=== PATIENT | male | born 1955 | race Caucasian/White ===

== ENCOUNTER 2020-03-11 10:47 | Outpatient (CLI) | payer MEDICAID, SELFPAY ==
[2020-03-14 17:00] LABS: Patient Race White; SARS-CoV-2 Specimen Source Nasal
[2020-03-14 18:19] LABS: SARS-CoV-2 RNA Detected (Undetected)
== END 2020-03-11 11:07 ==
PROVIDERS: PCP Family Medicine; Visit Provider Family Medicine
DX: Z11.59 Encounter for screening for other viral diseases (principal)
CPT/HCPCS: U0003

== ENCOUNTER 2020-03-17 06:24 | Inpatient (IN) | payer MEDICAID, SELFPAY ==
[2020-03-17] VITALS (70 sets, daily range): BP systolic 96–137; BP diastolic 50–102; PULSE 51–113; RESP 15–31; TEMP 36.6–37.5; O2SAT 74–98
--- NOTE | 2020-03-17 06:30 | RT.EKG_ITS ---
APPROVED REPORT Exam: Resting ECG Patient Location: E HR:85 bpm ECG Measurements Heart Rate 85 AXIS NC 142 P 34 QRSd 103 QRS 33 QT 348 T 19 QTc 414 Conclusion Sinus rhythm...normal P axis, V-rate 60- 99 Physician: Rate 85, intervals normal, sinus rhythm, inverted T wave in lead III, small Q-wave in lead III, but terminal S wave in lead I. No signs of STEMI. No other abnormalities
--- NOTE | 2020-03-17 06:41 | ED.GENADUL_ITS ---
Discharge Plan Disposition Condition: Good Discharge Details Chief Complaint: SOB Admit Date/Time: 03/17/20 08:35 Admit Provider: Andrés Turpin Attending Provider: Andrés Turpin Primary Care Provider: Arnoldo Villa ED Provider: Lyly Kaur Discharge Instructions Activity:: quarantine until 03/24/20 Equipment/Supplies:: No Equipment Needed Diet:: As Tolerated Discharge Orders Discharge Orders: Discharge Order (Routine); Ordered 03/19/20 Ordered By: Leodan De Guzman Discharge Data Discharge Date/Time-TO BE ENTERED AT DEPARTURE: 03/17/20 10:03 Medical Decision Making <Carmelo Hussein DO - Last Filed: 03/18/20 01:07> 65-year-old male with a past medical history of a COVID diagnosis 6 days ago, history of asthma, and distant history of smoking over 30 years ago, presents today for evaluation of shortness of breath. For the last 6 days he has had intermittent fever and chills, as well as shortness of breath, however over the last 72 hours he has had a notable progression of his shortness of breath, in conjunction with pleuritic chest pain. States that he feels like he cannot breathe when he tries to lay down at night, and feels notably winded with normal activities. He denies any tearing or ripping sensation. He does admit to a cough with no significant productivity. He states that it feels similar to his previous episodes of pneumonia in the past. He denies any headache, neck pain, nausea vomiting or diarrhea. He denies any new medications. He does take an inhaler occasionally at home. No other complaints at this time. Physical exam demonstrates crackles in the bases, oxygenation is at 91% at rest. He demonstrates mild respiratory distress but shows no signs of acute respiratory failure. Differential is broad but includes pulmonary edema secondary to Covid, pulmonary embolism potential but less likely. We will perform laboratory work- up, CT imaging, apply supplemental oxygen, monitor closely and reassess. EKG 6: 41 Rate 85, intervals normal, sinus rhythm, inverted T wave in lead III, small Q- wave in lead III, but terminal S wave in lead I. No signs of STEMI. No other abnormalities <Lyly Kaur MD - Last Filed: 03/24/20 11:56> Patient signed out to me at time of shift change by Dr. Hussein with labs pending. CT shows diffuse groundglass opacities, no PE per Dr. Hussein's discussion with radiology. Labs reviewed, notable for leukopenia, elevated ferritin, CRP, LDH, creatinine. Plan for dexamethasone and admission. I discussed the patient with hospitalist Dr. Hines, who requests remdesivir and Zosyn. Patient admitted to the ICU. Clinical impression: Covid, hypoxia Disposition: [facility] inpatient Medical Records Medical records reviewed: Yes I reviewed the patient's medical records. Lab Data Lab results reviewed: Yes I reviewed the patient's lab results. Labs: 03/17/20 07:00 Blood Blood Culture - Pending 03/17/20 06:45 Blood Blood Culture - Pending Laboratory Tests Range/Units 03/17/20 03/17/20 03/17/20 06:45 06:45 06:45 WBC (4.4-10.8) 10^3/uL 4.39 L RBC (4.36-5.78) 10^6/uL 4.65 Hgb (13.5-17.5) g/dL 13.6 Hct (40.0-50.0) % 40.4 MCV (80-95) fL 86.9 MCH (27.0-33.0) pg 29.2 MCHC (32.0-36.0) % 33.7 RDW (11.8-14.1) % 12.8 Plt Count (130-400) 10^3/uL 214 MPV (8.0-11.0) fL 10.3 Immature Gran % 0.5 Neutrophils % 81.6 Lymphocytes % 13.9 Monocytes % 3.6 Eosinophils % 0.2 Basophils % 0.2 Nucleated RBC % % 0 Absolute Neutrophils (1.2-6.7) 10^3/uL 3.58 Absolute Lymphocytes (1.2-3.4) 10^3/uL 0.61 L Absolute Monocytes (0.1-0.8) 10^3/uL 0.16 Absolute Eosinophils (0.0-0.7) 10^3/uL 0.01 Absolute Basophils (0.0-0.2) 10^3/uL 0.01 D-Dimer (<500) ng/mlFEU VBG Lactate (0.6-1.4) mmol/L 1.2 Sodium (136-145) mmol/L 137 Potassium (3.5-5.1) mmol/L 4.5 Chloride (98-107) mmol/L 102 Carbon Dioxide (21.0-32.0) mmol/L 26.3 Anion Gap (3-11) mmol/L 8.7 BUN (7-18) mg/dL 19 H Creatinine (0.70-1.30) mg/dL 1.33 H Estimated GFR/1.73 m2 (mL/min/1.73m2) 54.31 Glucose (74-106) mg/dL 90 Calcium (8.5-10.1) mg/dL 8.4 L Ferritin (26-388) ng/mL 758 H Total Bilirubin (0.2-1.0) mg/dL 0.4 AST (15-37) U/L 42 H ALT (16-63) U/L 27 Alkaline Phosphatase (46-116) U/L 64 Lactate Dehydrogenase (85-227) U/L 399 H Troponin I (<0.06) ng/mL < 0.05 C-Reactive Protein (0.0-0.3) mg/dL 12.29 H Total Protein (6.4-8.2) g/dL 7.1 Albumin (3.4-5.0) g/dL 3.2 L Procalcitonin ng/mL 0.1 Range/Units 03/17/20 06:45 WBC (4.4-10.8) 10^3/uL RBC (4.36-5.78) 10^6/uL Hgb (13.5-17.5) g/dL Hct (40.0-50.0) % MCV (80-95) fL MCH (27.0-33.0) pg MCHC (32.0-36.0) % RDW (11.8-14.1) % Plt Count (130-400) 10^3/uL MPV (8.0-11.0) fL Immature Gran % Neutrophils % Lymphocytes % Monocytes % Eosinophils % Basophils % Nucleated RBC % % Absolute Neutrophils (1.2-6.7) 10^3/uL Absolute Lymphocytes (1.2-3.4) 10^3/uL Absolute Monocytes (0.1-0.8) 10^3/uL Absolute Eosinophils (0.0-0.7) 10^3/uL Absolute Basophils (0.0-0.2) 10^3/uL D-Dimer (<500) ng/mlFEU 942 H VBG Lactate (0.6-1.4) mmol/L Sodium (136-145) mmol/L Potassium (3.5-5.1) mmol/L Chloride (98-107) mmol/L Carbon Dioxide (21.0-32.0) mmol/L Anion Gap (3-11) mmol/L BUN (7-18) mg/dL Creatinine (0.70-1.30) mg/dL Estimated GFR/1.73 m2 (mL/min/1.73m2) Glucose (74-106) mg/dL Calcium (8.5-10.1) mg/dL Ferritin (26-388) ng/mL Total Bilirubin (0.2-1.0) mg/dL AST (15-37) U/L ALT (16-63) U/L Alkaline Phosphatase (46-116) U/L Lactate Dehydrogenase (85-227) U/L Troponin I (<0.06) ng/mL C-Reactive Protein (0.0-0.3) mg/dL Total Protein (6.4-8.2) g/dL Albumin (3.4-5.0) g/dL Procalcitonin ng/mL HPI <Carmelo Hussein DO - Last Filed: 03/18/20 01:07> General Date/Time Provider Initiated Documentation: 03/17/20 06:27 . HPI Narrative: 65-year-old male with a past medical history of a COVID diagnosis 6 days ago, history of asthma, and distant history of smoking over 30 years ago, presents today for evaluation of shortness of breath. For the last 6 days he has had intermittent fever and chills, as well as shortness of breath, however over the last 72 hours he has had a notable progression of his shortness of breath, in conjunction with pleuritic chest pain. States that he feels like he cannot breathe when he tries to lay down at night, and feels notably winded with normal activities. He denies any tearing or ripping sensation. He does admit to a cough with no significant productivity. He states that it feels similar to his previous episodes of pneumonia in the past. He denies any headache, neck pain, nausea vomiting or diarrhea. He denies any new medications. He does take an inhaler occasionally at home. No other complaints at this time. Related Data Home Medications Medication Instructions Recorded Confirmed albuterol sulfate 90 mcg/actuation 2 puff INHALATION Q4H PRN #1 10/17/19 03/17/20 aerosol inhaler inhaler fluticasone 100 mcg-salmeterol 50 1 ea INHALATION BID #60 each 10/17/19 10/17/19 mcg/dose blistr powdr for inhalation amoxicillin-pot clavulanate 1 tab PO BID #10 tab 03/19/20 [Augmentin] budesonide-formoterol [Symbicort] 2 puff INHALATION BID #1 g 03/19/20 ipratropium-albuterol [Combivent 1 puff INHALATION QID #1 g 03/19/20 Respimat] lorazepam 0.5 mg tablet 0.5 mg PO QHS PRN #7 tab 03/21/20 Previous Rx's Medication Instructions Recorded albuterol sulfate 90 mcg/actuation 2 puff INHALATION Q4H PRN #1 10/17/19 aerosol inhaler inhaler fluticasone 100 mcg-salmeterol 50 1 ea INHALATION BID #60 each 10/17/19 mcg/dose blistr powdr for inhalation amoxicillin-pot clavulanate 1 tab PO BID #10 tab 03/19/20 [Augmentin] budesonide-formoterol [Symbicort] 2 puff INHALATION BID #1 g 03/19/20 ipratropium-albuterol [Combivent 1 puff INHALATION QID #1 g 03/19/20 Respimat] lorazepam 0.5 mg tablet 0.5 mg PO QHS PRN #7 tab 03/21/20 Allergies Allergy/AdvReac Type Severity Reaction Status Date / Time No Known Allergies Allergy Unverified 03/17/20 06:40 General Stated Complaint: SOB DEBBY: 3 Review of Systems <Carmelo Hussein DO - Last Filed: 03/18/20 01:07> All systems reviewed & are unremarkable except as noted in HPI and below PFSH <Carmelo Hussein DO - Last Filed: 03/18/20 01:07> Medical History Amputation of right middle finger (03/11/17) Chronic obstructive pulmonary disease (08/28/12) stay on the inhaler Family History Father , 88 Heart disease Hypertension Mother No problems noted. Brother No problems noted. Brother No problems noted. Brother No problems noted. Brother No problems noted. Son No problems noted. Daughter No problems noted. Daughter No problems noted. Social History Smoking/Tobacco Use Status: Current every day Smokeless tobacco user: snuff Quit status: has quit before (chews off and on) Second Hand Exposure: No Smoking risk assessment performed?: Yes Alcohol Intake: never Drug use: Never Substance use type: does not use Caregiver/Support person: Yes Household members: children and none Housing: house Number of Children: 1 Do you need help understanding health information?: Rarely Pets and animals: Yes Pets and animals: cat(s), horse(s) and other Details: Chicken Sexually active: Yes Do you think of yourself as: straight/heterosexual Current gender identity: decline to answer What is your relationship status?: How often do you talk on the phone with friends or family?: three or more times per week How often do you get together with friends or relatives?: three or more times per week How often do you attend faith or yazdanism services?: decline to answer Do you belong to any clubs or organized social groups?: yes Panel score (0-1 are the most socially isolated patients): 2 What type of physical activity do you participate in: other Duration: > 90 minutes/day Frequency: daily Apurva/Lutheran: No preference Special apurva needs: No Seatbelt use: always Helmet use: No Drive intox or ride w/intox transit bus driver: No Do you feel safe at home: Yes Do you feel safe in your relationship?: Yes Exam <Carmelo Hussein DO - Last Filed: 03/18/20 01:07> Narrative Exam Narrative: 1.Const: Well-nourished, Well-developed, appearing stated age 2.Eyes: PERRL, no conjunctival injection, and symmetrical lids. 3.ENT: Atraumatic external nose and ears. Moist MM. Neck: Symmetric, trachea midline, No thyromegaly. 4.CVS: +S1/S2, No murmurs or gallops. Peripheral pulses 2+ and equal in all extremities. Brisk capillary refill in all extremities. 5.RESP: Mild tachypnea, crackles in the bases, no wheezes or rhonchi. 6.GI: Soft, Nontender/Nondistended, No hepatosplenomegaly. No guarding or rebound. 7.MSK: Normocephalic/Atraumatic, Extremities w/o deformity or ttp No cyanosis or clubbing, Normal movement of all extremities 8.Skin: Warm, Dry. No rashes or lesions. 9.Neuro: transportation technician II-XII grossly intact. Sensation grossly intact, no focal n eurologic deficits. 10.Psych: (AAO) x3. Appropriate mood and affect Course <Carmelo Hussein DO - Last Filed: 03/18/20 01:07> Vital Signs Vital signs: Vital Signs Temperature 37 C 03/17/20 06:32 Pulse 89 03/17/20 06:32 Respiratory Rate 25 H 03/17/20 06:32 Blood Pressure 118/65 03/17/20 06:32 Pulse Oximetry 93 03/17/20 06:32 Temperature 37 C 03/17/20 06:32 Temperature Source Tympanic 03/17/20 06:32 Pulse 89 03/17/20 06:32 Respiratory Rate 25 H 03/17/20 06:32 Respiratory Effort 03/17/20 06:38 Blood Pressure 118/65 03/17/20 06:32 Blood Pressure Position Sitting 03/17/20 06:32 Pulse Oximetry 93 03/17/20 06:32 Oxygen Delivery Method Room Air 03/17/20 06:32 Oxygen Flow Rate 0 03/17/20 06:32 Comment 03/17/20 06:32 Sign Out <Carmelo Hussein DO - Last Filed: 03/18/20 01:07> Sign Out Data: Sign Out Comment: Covid positive, shortness of breath, O2 sat 91%. Pending labs and imaging. Last updated by Carmelo Hussein DO at 03/17/20 07:10
[2020-03-17 07:12] LABS: Lactate 1.2 mmol/L (0.6-1.4)
[2020-03-17 07:13] LABS: Abs Immature Grans 0.02 10^3/uL (0.0-0.06); Absolute Basophil Count 0.01 10^3/uL (0.0-0.2); Absolute Eosinophil Count 0.01 10^3/uL (0.0-0.7); Absolute Lymphocyte Count 0.61 10^3/uL (1.2-3.4); Absolute Monocyte Count 0.16 10^3/uL (0.1-0.8); Absolute Neutrophil Count 3.58 10^3/uL (1.2-6.7); Basophils % 0.2; Eosinophils % 0.2; HCT 40.4 % (40.0-50.0); HGB 13.6 g/dL (13.5-17.5); Immature Grans % 0.5; Lymphocytes % 13.9; MCH 29.2 pg (27.0-33.0); MCHC 33.7 % (32.0-36.0); MCV 86.9 fL (80-95); MPV 10.3 fL (8.0-11.0); Monocytes % 3.6; Neutrophils % 81.6; Nucleated RBC 0 %; Platelet Count 214 10^3/uL (130-400); RBC 4.65 10^6/uL (4.36-5.78); RDW 12.8 % (11.8-14.1); RDW-SD 40.4 fL; WBC 4.39 10^3/uL (4.4-10.8)
--- NOTE | 2020-03-17 07:24 | DI.CT_ITS ---
EXAM: CT CHEST PE CTA CLINICAL HISTORY: CP,SOB,Covid +, hypoxic. TECHNIQUE: Imaging Protocol: Axial CT angiography was performed with multi-slice acquisition and mu lti-planar and/or 3D reconstructions. CONTRAST MATERIAL: Intravenous: Omnipaque 350 Contrast volume:72 ml COMPARISON: No exams were available for comparison FINDINGS: CT angiography of the chest was performed with intravenous infusion of 72 cc of Omnipaque 350. There are multiple areas of ground-glass to consolidative opacity seen bilaterally, highly suspicious for acute pneumonia, the patient is reportedly C0VID positive and the findings are entirely consiste nt with COVID related pneumonia. No pleural effusion. Tracheobronchial tree appears intact. No evidence of pulmonary embolic disease. Thoracic aorta is of normal diameter, no thoracic aortic an eurysm or dissection, major branch vessels appear intact. Mild prominence of mediastinal nodes. Images obtained through the upper abdomen show unremarkable appearance of the visualized portions of the liver, spleen, pancreas, adrenals, and kidneys. 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 IMPRESSION: No evidence of pulmonary embolic disease. Appearance consistent with multi focal COVID pneumonia. RADIATION DOSE DELIVERED: Total DLP Total DLP DATA REPOSITORY: All CT scans at this facility are submitted to the National Radiology Data Registry (NRDR) Dose Index Registry (DIR) with the [employer] (ACR). RADIATION OPTIMIZATION: All CT scans at this facility use at least one of these dose optimization te chniques: automated exposure control; mA and/or kV adjustment per patient size (includes targeted exa ms where dose is matched to clinical indication); or iterative reconstruction.
[2020-03-17] MEDS: Normal Saline - Diluent 50 ML VIAL IV (07:35)
[2020-03-17] MEDS: Omnipaque 350 MG/ML 100 ML BTL 72 ML IJ (07:36)
[2020-03-17] MEDS: Normal Saline Flush 10 ML SYR IVP ×2 (07:37→10:26)
[2020-03-17 07:42] LABS: ALT 27 U/L (16-63); AST 42 U/L (15-37); Albumin 3.2 g/dL (3.4-5.0); Alkaline Phosphatase 64 U/L (46-116); Anion Gap 8.7 mmol/L (3-11); BUN 19 mg/dL (7-18); Bilirubin, Total 0.4 mg/dL (0.2-1.0); CO2 26.3 mmol/L (21.0-32.0); CREATININE 1.33 mg/dL (0.70-1.30); Calcium 8.4 mg/dL (8.5-10.1); Chloride 102 mmol/L (98-107); Estimated GFR 54.31 (mL/min/1.73m2); Ferritin 758 ng/mL (26-388); Glucose 90 mg/dL (74-106); Potassium 4.5 mmol/L (3.5-5.1); Sodium 137 mmol/L (136-145); Total Protein 7.1 g/dL (6.4-8.2); Troponin I < 0.05 ng/mL (<0.06)
[2020-03-17 07:51] LABS: Procalcitonin 0.1 ng/mL
[2020-03-17 07:53] LABS: C-Reactive Protein 12.29 mg/dL (0.0-0.3); D-Dimer 942 ng/mlFEU (<500); LDH 399 U/L (85-227)
[2020-03-17] MEDS: PIPERACILLIN/TAZO 4.5 GM in Normal Saline 100 ML IVPB ×2 (09:00→14:43)
[2020-03-17] MEDS: Dexamethasone 10 MG/ML VIAL IVP (09:06)
[2020-03-17 10:21] LABS: Troponin I < 0.05 ng/mL (<0.06)
--- NOTE | 2020-03-17 10:35 | HPE_ITS ---
Date of service: 03/17/20 Time of Service: 10:35 Assessment and Plan Assessment and plan (1) Community acquired pneumonia: Status: Acute Assessment and plan: Supplemental oxygen, IV Zosyn, Combivent Respimat inhaler, IV Decadron 6 mg daily for 10 doses or until discharge., IV Remdesivir 100 mg IV daily x4 more days. Patient is encouraged to assume the prone position is much as possible. I told him that he could rotate from side to side alternating with lying on his abdomen and chest. Qualifiers: Laterality: unspecified laterality Qualified Code(s): J18.9 - Pneumonia, unspecified organism (2) COVID-19 virus infection: Status: Acute Assessment and plan: As above. (3) Full code status: Status: Acute Assessment and plan: I have discussed his care and treatment plan carefully with the patient including the use of Remdesivir and IV corticosteroids and IV antibiotics as well as need for prone positioning. We also discussed CODE STATUS. He is indicated these never had a discussion regarding advanced directives at this time he remains a full code. I explained to him that in all likelihood he will recover from this COVID-19 infection and pneumonia however because of his age and his underlying COPD he is at risk of rapid clinical deterioration which may necessitate intubation and ventilation if his respiratory status deteriorates over the next 24 hours. History of Present Illness History of Present Illness Chief Complaint: Dyspnea Narrative: 65-year-old male former smoker with history of COPD who traveled to [place] for horse fell approximately 2 weeks ago and subsequently underwent SARS-CoV-2 screening test in order to return to work. 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. He was told that he was positive for SARS-CoV-2 and told to quarantine for 14 days. He lives with his 24-year-old son also tested positive for SARS-CoV-2. Initially he felt fine but then gradually developed flulike symptoms with generalized malaise and muscle aches. Over the past 2 days he has had increased shortness of breath to the point where he cannot lie down at night. He denies any fever or rigors but has felt chilled and has a nonproductive cough. He has had no nausea or vomiting or abdominal complaints and denies any chest discomfort. Upon presentation to the emergency department he was mildly tachypneic with respiratory rates 28-31. However he was not tachycardic or hypotensive. He is afebrile at 37 ?C. He was mildly hypoxemic with an oxygen saturation of 90 to 91% on room air. He was placed on 1 L/min per nasal cannula which improved his oxygen status. Work-up in the emergency department where he underwent CTA of his chest that failed to show any pulmonary emboli or aneurysms but it demonstrated diffuse bilateral multi lobar groundglass opacifications consistent with pneumonia. Rest of his diagnostic work-up included routine labs including a CBC that developed a lymphopenia with an absolute lymphocyte count of 610 and a total WBC count of 4300. D-dimer was elevated at 942. Blood lactate was normal at 1.2. ABG was not initially obtained but has since been obtained on 2 L nasal cannula with a pH 7.41, PCO2 35, PO2 81, bicarbonate 22, base excess -3 and oxygen saturation 96%. CMP on admission demonstrated mildly elevated BUN and creatinin e of 19 and 1.33 and an elevated ferritin of 758 and an elevated LDH at 399. CRP was elevated at 12.2. Procalcitonin level was 0.1. Treatment in the emergency department included supplemental oxygen, dexamethasone 10 mg IV push. And per my advice Remdesivir and Zosyn were started. Review of Systems All systems reviewed & are unremarkable except as noted in HPI and below [facility] Medical History Amputation of right middle finger (03/11/17) Chronic obstructive pulmonary disease (08/28/12) stay on the inhaler Family History Father , 88 Heart disease Hypertension Mother No problems noted. Brother No problems noted. Brother No problems noted. Brother No problems noted. Brother No problems noted. Son No problems noted. Daughter No problems noted. Daughter No problems noted. Social History (Updated 03/17/20 @ 12:26 by Andrés Turpin) Smoking/Tobacco Use Status: Current every day Smokeless tobacco user: snuff Quit status: has quit before (chews off and on) Second Hand Exposure: No Smoking risk assessment performed?: Yes Alcohol Intake: never Drug use: Never Substance use type: does not use Caregiver/Support person: Yes Household members: children and none Housing: house Number of Children: 1 Do you need help understanding health information?: Rarely Pets and animals: Yes Pets and animals: cat(s), horse(s) and other Details: Chicken Sexually active: Yes Do you think of yourself as: straight/heterosexual Current gender identity: decline to answer What is your relationship status?: How often do you talk on the phone with friends or family?: three or more times per week How often do you get together with friends or relatives?: three or more times per week How often do you attend restorationism or rastafari services?: decline to answer Do you belong to any clubs or organized social groups?: yes Panel score (0-1 are the most socially isolated patients): 2 What type of physical activity do you participate in: other Duration: > 90 minutes/day Frequency: daily Apurva/Moravian: No preference Special apurva needs: No Seatbelt use: always Helmet use: No Drive intox or ride w/intox jukebox route driver: No Do you feel safe at home: Yes Do you feel safe in your relationship?: Yes Meds Home Medications and Allergies Home Medications Medication Instructions Recorded Confirmed Type albuterol sulfate 90 mcg/actuation 2 puff INHALATION Q4H PRN #1 10/17/19 03/17/20 Rx aerosol inhaler inhaler fluticasone 100 mcg-salmeterol 50 1 ea INHALATION BID #60 each 10/17/19 10/17/19 Rx mcg/dose blistr powdr for inhalation Allergies Allergy/AdvReac Type Severity Reaction Status Date / Time No Known Allergies Allergy Unverified 03/17/20 06:40 Exam Narrative Exam Narrative: Limited exam as the patient is in respiratory isolation with a keep the filter running in due to might need to wear a PAPR unit I could not adequately auscultate his chest or abdomen. In appearance the patient appears to be in no respiratory distress. He is able to talk in complete sentences and denies shortness of breath at present time. He is not using accessory respiratory muscles. Skin is warm and dry. Neck is supple nontender normal carotid pulses no visible JVD no cervical lymphadenopathy no thyromegaly. Chest expands well no palpable tactile fremitus. No accessory respiratory muscle use. No chest wall tenderness. PMI is nondisplaced at the apex underneath the left nipple with no palpable thrill or heave. Abdomen soft and nontender without palpable masses organomegaly. Extremities without peripheral cyanosis or edema. No calf tenderness or swelling no thigh tenderness or swelling. Normal pedal pulses. Neuro exam is grossly intact nonfocal normal range of motion and normal strength in both upper and lower extremities normal sensation to light touch. Results Labs Result diagrams: 03/17/20 06:45 03/17/20 06:45 Labs: Laboratory Results - last 24 hr 03/17/20 03/17/20 03/17/20 06:45 06:45 06:45 WBC 4.39 L RBC 4.65 Hgb 13.6 Hct 40.4 MCV 86.9 MCH 29.2 MCHC 33.7 RDW 12.8 Plt Count 214 MPV 10.3 Immature Gran % 0.5 Neutrophils % 81.6 Lymphocytes % 13.9 Monocytes % 3.6 Eosinophils % 0.2 Basophils % 0.2 Nucleated RBC % 0 Absolute Neutrophils 3.58 Absolute Lymphocytes 0.61 L Absolute Monocytes 0.16 Absolute Eosinophils 0.01 Absolute Basophils 0.01 D-Dimer VBG Lactate 1.2 Sodium 137 Potassium 4.5 Chloride 102 Carbon Dioxide 26.3 Anion Gap 8.7 BUN 19 H Creatinine 1.33 H Estimated GFR/1.73 m2 54.31 Glucose 90 Calcium 8.4 L Ferritin 758 H Total Bilirubin 0.4 AST 42 H ALT 27 Alkaline Phosphatase 64 Lactate Dehydrogenase 399 H Troponin I < 0.05 C-Reactive Protein 12.29 H Total Protein 7.1 Albumin 3.2 L Procalcitonin 0.1 03/17/20 03/17/20 06:45 09:45 WBC RBC Hgb Hct MCV MCH MCHC RDW Plt Count MPV Immature Gran % Neutrophils % Lymphocytes % Monocytes % Eosinophils % Basophils % Nucleated RBC % Absolute Neutrophils Absolute Lymphocytes Absolute Monocytes Absolute Eosinophils Absolute Basophils D-Dimer 942 H VBG Lactate Sodium Potassium Chloride Carbon Dioxide Anion Gap BUN Creatinine Estimated GFR/1.73 m2 Glucose Calcium Ferritin Total Bilirubin AST ALT Alkaline Phosphatase Lactate Dehydrogenase Troponin I < 0.05 C-Reactive Protein Total Protein Albumin Procalcitonin Last Vital Signs Temp 37 C 03/17/20 10:23 Pulse 82 03/17/20 10:23 Resp 24 03/17/20 10:23 BP 109/79 03/17/20 10:23 Pulse Ox 95 03/17/20 10:23 COVID-19 Screening Have you,or household,traveled outside [place] in last 14 days?: No Had IN PERSON contact w/suspected or confirmed C-19 person: Yes
[2020-03-17] MEDS: Enoxaparin 40 MG/0.4 ML SYR SC (11:01)
[2020-03-17] MEDS: Mylanta Suspension 30 ML CUP PO (11:01)
[2020-03-17 11:58] LABS: BE -3 mmol/L (-2-3); HCO3 22 mmol/L (22-26); pCO2 35 mmHg (35-45); pH 7.41 (7.35-7.45); pO2 81 mmHg (80-105); sO2 96 % (95-98); tCO2 20 mmol/L (23-27)
[2020-03-17 11:59] LABS: FIO2L 2L NC L; Site Right Radial
[2020-03-17] MEDS: Pantoprazole 40 MG TABCR PO (12:49)
[2020-03-17] MEDS: Ipratropium/Albuterol 4 GM 120 PUFF INH IH ×2 (16:13→22:05)
[2020-03-18] VITALS (28 sets, daily range): BP systolic 85–124; BP diastolic 52–84; PULSE 50–73; RESP 13–26; TEMP 36.4–36.8; O2SAT 89–96
[2020-03-18] MEDS: PIPERACILLIN/TAZO 4.5 GM in Normal Saline 100 ML IVPB ×3 (05:10→22:19)
[2020-03-18] MEDS: Normal Saline 1,000 ML 85 ML IV (05:36)
[2020-03-18 06:59] LABS: Abs Immature Grans 0.01 10^3/uL (0.0-0.06); Absolute Monocyte Count 0.36 10^3/uL (0.1-0.8); HCT 39.6 % (40.0-50.0); HGB 13.2 g/dL (13.5-17.5); Immature Grans % 0.2; Lymphocytes % 21.1; MCH 28.9 pg (27.0-33.0); MCHC 33.3 % (32.0-36.0); MCV 86.8 fL (80-95); MPV 10.3 fL (8.0-11.0); Monocytes % 8.4; Neutrophils % 70.3; Nucleated RBC 0 %; Platelet Count 230 10^3/uL (130-400); RBC 4.56 10^6/uL (4.36-5.78); RDW-SD 41.1 fL; WBC 4.27 10^3/uL (4.4-10.8)
[2020-03-18 07:21] LABS: ALT 26 U/L (16-63); AST 42 U/L (15-37); Albumin 2.7 g/dL (3.4-5.0); Alkaline Phosphatase 58 U/L (46-116); Anion Gap 9.6 mmol/L (3-11); BUN 23 mg/dL (7-18); Bilirubin, Total 0.3 mg/dL (0.2-1.0); CO2 23.4 mmol/L (21.0-32.0); CREATININE 1.11 mg/dL (0.70-1.30); Calcium 8.2 mg/dL (8.5-10.1); Chloride 104 mmol/L (98-107); Glucose 107 mg/dL (74-106); Potassium 4.3 mmol/L (3.5-5.1); Sodium 137 mmol/L (136-145); Total Protein 6.6 g/dL (6.4-8.2)
[2020-03-18] MEDS: Ipratropium/Albuterol 4 GM 120 PUFF INH IH ×4 (08:12→22:17)
[2020-03-18] MEDS: Acetaminophen 325 MG TAB PO (09:00)
[2020-03-18] MEDS: Pantoprazole 40 MG TABCR PO (09:00)
[2020-03-18] MEDS: Dexamethasone 10 MG/ML VIAL 6 MG IVP (09:01)
[2020-03-18] MEDS: Budesonide/Formoterol 160/4.5 6 GM 60 PUFF INH IH ×2 (10:20→22:32)
--- NOTE | 2020-03-18 10:23 | PHA.REVIEW ---
Pharmacy Admission Review - Admission Clinical Review (Last Reviewed 03/17/20 @ 12:26 by Andrés Turpin) Full code status (Acute) COVID-19 virus infection (Acute) Community acquired pneumonia (Acute) No Known Allergies Allergy (Unverified 03/17/20 06:40) Height 5 ft 8 in Weight 81.9 kg - Renal Dosing Renal Dosing: BUN 23 mg/dL (7-18) H 03/18/20 06:40 Creatinine 1.11 mg/dL (0.70-1.30) 03/18/20 06:40 Medications needing adjustments: Reviewed (Crcl ~65 mL/min current meds okay) - Anticoagulation Anticoagulation: Hgb 13.2 g/dL (13.5-17.5) L 03/18/20 06:40 Hct 39.6 % (40.0-50.0) L 03/18/20 06:40 Plt Count 230 10^3/uL (130-400) 03/18/20 06:40 Creatinine 1.11 mg/dL (0.70-1.30) 03/18/20 06:40 DVT Prohphylaxis: Reviewed Medications: Enoxaparin Therapeutic Anticoagulation: N/A - Opiate Usage Evaluate Pain Scale/Pains Meds: N/A - Relevant Labs Sodium 137 mmol/L (136-145) 03/18/20 06:40 Potassium 4.3 mmol/L (3.5-5.1) 03/18/20 06:40 Chloride 104 mmol/L (98-107) 03/18/20 06:40 C-Reactive Protein 12.29 mg/dL (0.0-0.3) H 03/17/20 06:45 Electrolytes, C-Reactive P, ESR: Reviewed - DM Control DM Control: Glucose 107 mg/dL (74-106) H 03/18/20 06:40 Insulin Dosing: N/A - Heart Failure/PR Heart Failure/PR: Troponin I < 0.05 ng/mL (<0.06) 03/17/20 09:45 EF%, ALVIN's, B-Blockers, Diuretics: Reviewed - BP Control BP Control: Blood Pressure [Left Arm] 112/65 Blood Pressure 93/64 Blood Pressure 112/65 Blood Pressure 118/81 Blood Pressure 108/76 Blood Pressure 117/63 Blood Pressure 104/65 Blood Pressure 105/62 Blood Pressure 95/55 Blood Pressure 99/57 Blood Pressure 107/63 Blood Pressure 85/56 Blood Pressure 115/69 If elevated: Reviewed (low to normal) - Qtc Review If Elevated: N/A (QTc 414) - IV to PO Switch IV Medications: Reviewed - Home Meds Home Med List reviewed: Reviewed Relevent Home Meds Not ordered & why?: fluticasone/salmeterol (has budesonide/formoterol ordered) - Current meds Current Medication Order Review: Reviewed - Comments Comments/Follow Ups: Watch VS, SCr and for med changes. Antibiotic Activity - Pharmacy Antibiotic Review Pharmacy Antibiotic Activity: Reviewed, no change (zosyn to cover for pneumonia)
--- NOTE | 2020-03-18 13:05 | W.NUTRFU ---
Date of service: 03/18/20 Time of Service: 13:05 Nutritional Follow up NOTE: 65 year old male admitted with covid 19 infection withih PNA with hx of COPD. BMI wnl for age. Following regular diet with excellent intake. Not at nutritional risk at this time. Will continue to follow. Time Spent in Nutritional Counseling and Treatment: 0
[2020-03-18] MEDS: Enoxaparin 40 MG/0.4 ML SYR SC (13:44)
--- NOTE | 2020-03-18 14:07 | W.PM.PROGNOT ---
Date of Service Date of service: 03/18/20 Time of Service: 14:07 Assessment and Plan Assessment and plan (1) COVID-19 virus infection: Status: Acute Assessment and plan: Clinically improving. O2 saturations in the low 90's. He does have COPD and baseline O2 saturations are not known. Cont IV decadron 6mg daily for 10 doses or until discharge. Cont IV Remdesivir 100mg IV daily for 3 more days. Prone position frequently; is tolerating. He is also on Zosyn for possible bacterial superinfection. (2) Chronic obstructive pulmonary disease: Status: Acute Assessment and plan: Cont Combivent. On Decadron for Covid treatment Qualifiers: COPD type: unspecified COPD Qualified Code(s): J44.9 - Chronic obstructive pulmonary disease, unspecified Subjective Subjective Patient reports: no new complaints, feels better, tolerating a regular diet and afebrile; denies shortness of breath (speaks in complete sentences w/o SOB) Exam Const General: cooperative and no acute distress Nutritional Appearance: average body habitus Orientation: alert and oriented x3 Chest Chest: no localized rib tenderness and no tenderness Resp Effort & Inspection: normal respiratory effort Auscultation: diminished lung sounds and rhonchi (Soft, throughout) Cardio Rate: regular rate Rhythm: regular rhythm Heart Sounds: S1 normal and S2 normal GI Palpation: soft and nontender Auscultation: normal bowel sounds Skin General skin exam: no rashes or lesions noted Neuro General: patient alert, patient oriented x3, moves all extremities and no focal motor deficits Speech: speech normal Motor: muscle tone normal throughout Extrem General: no pedal edema and no calf tenderness Objective Last Vital Signs Temp 36.6 C 03/18/20 09:12 Pulse 62 03/18/20 12:09 Resp 19 03/18/20 12:09 BP 120/81 03/18/20 12:09 Pulse Ox 95 03/18/20 12:09 Laboratory Results - last 24 hr 03/18/20 03/18/20 06:40 06:40 WBC 4.27 L RBC 4.56 Hgb 13.2 L Hct 39.6 L MCV 86.8 MCH 28.9 MCHC 33.3 RDW 13.0 Plt Count 230 MPV 10.3 Immature Gran % 0.2 Neutrophils % 70.3 Lymphocytes % 21.1 Monocytes % 8.4 Eosinophils % 0.0 Basophils % 0.0 Nucleated RBC % 0 Absolute Neutrophils 3.00 Absolute Lymphocytes 0.90 L Absolute Monocytes 0.36 Absolute Eosinophils 0.00 Absolute Basophils 0.00 Sodium 137 Potassium 4.3 Chloride 104 Carbon Dioxide 23.4 Anion Gap 9.6 BUN 23 H Creatinine 1.11 Estimated GFR/1.73 m2 >= 60.00 Glucose 107 H Calcium 8.2 L Total Bilirubin 0.3 AST 42 H ALT 26 Alkaline Phosphatase 58 Total Protein 6.6 Albumin 2.7 L
--- NOTE | 2020-03-18 16:07 | PDOC.CMIN ---
- If Service Date Differs Date of service: 03/18/20 Time of Service: 16:07 Care Management Initial Assess REASON FOR HOSPITALIZATION:: Covid +, Hypoxia PAST MEDICAL HISTORY/PAST SURGICAL HISTORY:: Medical History. 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 Chronic obstructive pulmonary disease (08/28/12). stay on the inhaler PREVIOUS FUNCTIONAL STATUS/SOCIAL/FAMILY SUPPORTS:: Maciej lives in [place] with his adult son, Filipe. 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 He is independent at baseline. CURRENT FUNCTIONAL STATUS:: Maciej is currently under precautions for Covid 19, so CM was unable to meet with him in person. CM called Maciej on his cell phone and engaged in a conversation regarding his care. He stated that his main concern currently is that he does not have insurance, and is unsure what he qualifies for. CM sent a referral to [employer] for assistance with insurance, as well as a release for the navigator to attempt to obtain insurance for him. CM will continue to follow. ADVANCE DIRECTIVES:: None on file. Has patient been provided with info about the portal/API?: No Did the patient sign up for the portal?: No CODE STATUS:: Full Code INSURANCE COVERAGE / FINANCIAL ISSUES:: Self Pay. CM sent a referral to [employer] for insurance support. CURRENT HOME/COMMUNITY SERVICES/EQUIPMENT:: No current services or equipment. PRIMARY CARE PHYSICIAN:: Arnoldo Villa POTENTIAL DISCHARGE NEEDS:: Insurance needs, follow up appointments. PATIENT/FAMILY EDUCATION NEEDS:: Review discharge instructions regarding activity levels and medications, discussion of self care needs including ask me three. ANTICIPATED BARRIERS TO DISCHARGE:: None identified at this time. TRANSPORTATION:: Via private vehicle by family. PLAN:: Maciej will return home once medically cleared with no anticipated services. He will be driven home via private vehicle by family when ready. He will follow up with his PCP and discharge plan of care. CM will continue to follow.
[2020-03-18] MEDS: Zolpidem 5 MG TAB PO (22:17)
[2020-03-18] MEDS: Normal Saline Flush 10 ML SYR IVP (22:19)
[2020-03-19] VITALS (14 sets, daily range): BP systolic 94–130; BP diastolic 50–76; PULSE 50–73; RESP 16–24; TEMP 36.3–37.1; O2SAT 90–95
[2020-03-19] MEDS: PIPERACILLIN/TAZO 4.5 GM in Normal Saline 100 ML IVPB (06:05)
[2020-03-19] MEDS: Budesonide/Formoterol 160/4.5 6 GM 60 PUFF INH IH (08:08)
[2020-03-19] MEDS: Ipratropium/Albuterol 4 GM 120 PUFF INH IH (08:08)
[2020-03-19] MEDS: Dexamethasone 10 MG/ML VIAL 6 MG IVP (08:53)
[2020-03-19] MEDS: Pantoprazole 40 MG TABCR PO (08:54)
--- NOTE | 2020-03-19 09:48 | DSE_ITS ---
Date of service: 03/19/20 Time of Service: 09:48 DS: Diagnosis Discharge Diagnosis (1) COVID-19 virus infection: Status: Acute (2) Chronic obstructive pulmonary disease: Status: Acute Discharge Plan Disposition Patient Disposition: HOME Condition: Good Discharge Details Reason For Visit: COVJJ, HYPOXIA Admit Date/Time: 03/17/20 08:35 Admit Provider: Andrés Turpin Attending Provider: Andrés Turpin Primary Care Provider: Arnoldo Villa Hospital Course Hospital Course: This is a 65-year-old male former smoker with history of COPD who traveled to [place] approximately 2 weeks ago and subsequently underwent SARS-CoV-2 screening test in order to return to work. 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 He was told that he was positive for SARS-CoV-2 and told to quarantine for 14 days. He lives with his 24-year-old son also tested positive for SARS-CoV-2. Initially he felt fine but then gradually developed flulike symptoms with generalized malaise and muscle aches. Over 2 days prior to arrival he had increased shortness of breath to the point where he could not lie down at night. He denied any fever or rigors but has felt chilled and has a nonproductive cough. No nausea or vomiting or abdominal complaints, chest discomfort. Upon presentation to the emergency department he was mildly tachypneic with respiratory rates 28-31. However he was not tachycardic or hypotensive. He was afebrile at 37 ?C. He was mildly hypoxemic with an oxygen saturation of 90 to 91% on room air. He was placed on 1 L/min per nasal cannula which improved his oxygen status. Work-up in the emergency department where he underwent CTA of his chest that failed to show any pulmonary emboli or aneurysms but it demonstrated diffuse bilateral multi lobar groundglass opacifications consistent with pneumonia. Rest of his diagnostic work-up included routine labs including a CBC that developed a lymphopenia with an absolute lymphocyte count of 610 and a total WBC count of 4300. D-dimer was elevated at 942. Blood lactate was normal at 1.2. ABG was not initially obtained but has since been obtained on 2 L nasal cannula with a pH 7.41, PCO2 35, PO2 81, bicarbonate 22, base excess -3 and oxygen saturation 96%. CMP on admission demonstrated mildly elevated BUN and creatinine of 19 and 1.33 and an elevated ferritin of 758 and an elevated LDH at 399. CRP was elevated at 12.2. Procalcitonin level was 0.1. Treatment in the emergency department included supplemental oxygen, dexamethasone 10 mg IV push, Remdesivir and Zosyn were started. He was instructed to lie prone on a schedule. His respiratory status improved and he felt better with each day. He remained afebrile. He will d/c to home to finish his 14 day quarantine. He may return to work on 03/24/2020 with mandated mask and distancing emphasized. Augmentin 875mg po BID for 10 doses. He was started on Symbicort and Combivent and those were prescribed. F/U with PCP in 1 week. Home Meds and New Rx's Prescriptions: New budesonide-formoterol [Symbicort] 160-4.5 mcg/actuation Hfa Aerosol Inhaler 2 puff inhalation BID Qty: 1 RF: 0 Combivent Respimat 20-100 mcg/actuation Mist 1 puff inhalation QID Qty: 1 RF: 0 amoxicillin-pot clavulanate [Augmentin] 875-125 mg tablet 1 tab PO BID Qty: 10 RF: 0 Continued albuterol sulfate [ProAir HFA] 90 mcg/actuation HFA aerosol inhaler 2 puff Inhalation Q4H PRN Qty: 1 RF: 6 fluticasone propion-salmeterol [Advair Diskus] 100-50 mcg/dose blister with device 1 ea Inhalation BID Qty: 60 RF: 11 Discharge Instructions Instructions: COVID-19 Patient Family Discharge Instructions Activity:: quarantine until 03/24/20 Equipment/Supplies:: No Equipment Needed Diet:: As Tolerated Discharge Orders Discharge Orders: Discharge Order (Routine); Ordered 03/19/20 Ordered By: Leodan De Guzman Discharge Data Discharge Date/Time-TO BE ENTERED AT DEPARTURE: 03/19/20 11:45 DS: Summary Status at Discharge Functional status at discharge: independent ambulation Overall status at discharge: patient is progressing back to baseline Mental Status: mental status grossly normal Speech and Movement: speech and movement normal Mood: congruent mood Affect: normal affect Exam Const General: cooperative and no acute distress Nutritional Appearance: average body habitus Orientation: alert and oriented x3 Resp Effort & Inspection: normal respiratory effort Auscultation: clear to auscultation bilaterally and diminished lung sounds Cardio Jugular venous pressure: no JVD Rate: regular rate Rhythm: regular rhythm Heart Sounds: S1 normal and S2 normal GI Palpation: soft and nontender Auscultation: normal bowel sounds Skin General skin exam: no rashes or lesions noted Extrem General: no pedal edema and no calf tenderness Psych Mental Status: mental status grossly normal Speech and Movement: speech and movement normal Mood: congruent mood Affect: normal affect DS: Data Vitals/I&O Vitals and I&O: Vital Signs Temperature 37.1 C 03/19/20 06:23 Temperature Source Temporal Artery Scan 03/19/20 06:23 Pulse 60 03/19/20 08:00 Pulse 57 L 03/19/20 08:00 Respiratory Rate 20 03/19/20 08:00 Respiratory Effort Non-Labored 03/19/20 02:45 Respiratory Depth Normal 03/19/20 02:45 Respiratory Pattern Normal 03/19/20 02:45 Blood Pressure 130/72 03/19/20 08:00 Blood Pressure Mean 85 03/19/20 08:00 Blood Pressure Position Supine 03/18/20 09:12 Pulse Oximetry 92 03/19/20 08:00 Oxygen Delivery Method Room Air 03/19/20 02:45 Oxygen Flow Rate 0 03/19/20 02:45 Pain Level 0 03/18/20 21:45 Comment 03/17/20 06:32 Intake & Output 03/18/20 03/18/20 03/19/20 11:59 23:59 11:59 Intake Total 300 / 1100 800 / 1100 100 / 100 Output Total 750 / 1100 350 / 1100 Balance -450 / 0 450 / 0 100 / 100 Weight 81.9 kg 79.4 kg Intake: IV 200 / 200 100 / 100 Oral 300 / 900 600 / 900 Output: Urine 750 / 1100 350 / 1100 Other: Urine Color Yellow Light John Straw Urine Appearance Clear Clear Urine Odor None Comment 150cc clear john void in urinal at this time. No void at this time. 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 Brother No problems noted. Brother No problems noted. Brother No problems noted. Brother No problems noted. Son No problems noted. Daughter No problems noted. Daughter No problems noted. Social History Smoking/Tobacco Use Status: Current every day Smokeless tobacco user: snuff Quit status: has quit before (chews off and on) Second Hand Exposure: No Smoking risk assessment performed?: Yes Alcohol Intake: never Drug use: Never Substance use type: does not use Caregiver/Support person: Yes Household members: children and none Housing: house Number of Children: 1 Do you need help understanding health information?: Rarely Pets and animals: Yes Pets and animals: cat(s), horse(s) and other Details: Chicken Sexually active: Yes Do you think of yourself as: straight/heterosexual Current gender identity: decline to answer What is your relationship status?: How often do you talk on the phone with friends or family?: three or more times per week How often do you get together with friends or relatives?: three or more times per week How often do you attend amish or zoroastrianism services?: decline to answer Do you belong to any clubs or organized social groups?: yes Panel score (0-1 are the most socially isolated patients): 2 What type of physical activity do you participate in: other Duration: > 90 minutes/day Frequency: daily Apurva/Lutheran: No preference Special apurva needs: No Seatbelt use: always Helmet use: No Drive intox or ride w/intox fast food delivery driver: No Do you feel safe at home: Yes Do you feel safe in your relationship?: Yes
--- NOTE | 2020-03-19 14:18 | PDOC.CMDIS ---
- If Service Date Differs Date of service: 03/19/20 Time of Service: 14:18 LACE Index Scoring Tool - Questions: Length of Stay (in days): 3 Acuity (Admit via E.D.?): Yes Comorbidities: Chronic Pulmonary Disease E.D. Visits: 1 - Answers: Total Score: 9 Risk of Readmission: Low Risk Care Management Discharge Reason for Hospitalization: Covid +, Hypoxia Discharge Plan: Maciej will return home with no additional services at this time. He will be driven home via private vehicle by family. Dina called him today and completed an intake for new insurance. He may not qualify for insurance until 05/09/20, but if that is the case they will assist him with a patient assistance packet. He will follow up with his PCP and discharge plan of care. He is happy to be going home. Patient/Family Education Needs: Review discharge instructions regarding medications and quarantine expectations to reduce the spread of Covid 19, discussion of self care needs including ask me three.
== END 2020-03-19 11:45 | disposition home or self-care (01) | DRG 177 ==
LOC: ER 09:04 → ICU 10:07
PROVIDERS: Student in an Organized Health Care Education/Training Program; Admitting Provider Internal Medicine; Emergency Provider Student in an Organized Health Care Education/Training Program; PCP Family Medicine; Visit Provider Internal Medicine
DX: U07.1 COVID-19 (principal); J12.89 Other viral pneumonia; J44.0 Chronic obstructive pulmonary disease with (acute) lower respiratory infection; R09.02 Hypoxemia; Z87.891 Personal history of nicotine dependence
CPT/HCPCS: 36415; 71275; 80053; 82805; 84145; 87040; 93005; 94640; 96365; 96367; 96375; 99220; 99232; 99239; 99285; J1650; 36600; 82728; 83605; 83615; 84484; 85025; 85379; 86140; 93010; 99223; J1100; J2543; J3490

== ENCOUNTER 2021-03-02 11:10 | Outpatient (CLI) | payer MEDICAID, SELFPAY ==
--- NOTE | 2021-03-02 10:30 | DI.RAD_ITS ---
Exam(s) XR KNEE RT 3V AP,LAT,MARGOT EXAM: XR KNEE RT 3V AP,LAT,MARGOT CLINICAL HISTORY: horse fell on rt knee,acute rt knee pain, m25.569. TECHNIQUE: 2D digital imaging was performed. COMPARISON: No exams were available for comparison FINDINGS: There is prominent prepatellar swelling. No radiopaque foreign body. No evidence of patellar fractu re nor other fractures. No joint effusions seen. No abnormal density in the anterior intra-articula r Hoffa fat pad. No obvious degenerative changes. IMPRESSION: Prominent prepatellar swelling. No fractures. DATA REPOSITORY: RADIATION DOSE DELIVERED:
== END 2021-03-02 11:30 ==
PROVIDERS: PCP Family Medicine; Visit Provider Family Medicine
DX: M25.561 Pain in right knee (principal); M79.89 Other specified soft tissue disorders
CPT/HCPCS: 73562

== ENCOUNTER 2021-10-20 09:10 | Outpatient (CLI) | payer MEDICAID, SELFPAY ==
[2021-10-20 13:15] LABS: Anion Gap 8.6 mmol/L (3-11); BUN 24 mg/dL (7-18); CO2 27.4 mmol/L (21.0-32.0); CREATININE 1.1 mg/dL (0.70-1.30); Calculated LDL 184 mg/dL (<100); Chloride 102 mmol/L (98-107); Cholesterol 251 mg/dL (<200); Glucose 122 mg/dL (74-106); HDL Cholesterol 46 mg/dL (40-60); Potassium 4.1 mmol/L (3.5-5.1); Sodium 138 mmol/L (136-145); Triglyceride 105 mg/dL (<150)
[2021-10-20 23:43] LABS: PSA, Screening 12.8 ng/mL (<=4.5)
== END 2021-10-20 09:11 | disposition home or self-care (01) ==
LOC: LOS 09:10
PROVIDERS: PCP Family Medicine; Referring Provider Family Medicine; Visit Provider Family Medicine
DX: E78.5 Hyperlipidemia, unspecified (principal); E87.1 Hypo-osmolality and hyponatremia; Z12.5 Encounter for screening for malignant neoplasm of prostate
CPT/HCPCS: 36415; 80048; 80061; 84153

== ENCOUNTER 2022-01-12 07:06 | Day surgery (SDC) | payer MEDICARE, MEDICAID, SELFPAY ==
--- NOTE | 2022-01-11 18:12 | W.ANESPRE ---
General Info Date of Service Date Performed: 01/12/22 Height: 5 ft 7 in Weight: 86.183 kg Body Mass Index (BMI): 29.7 Surgical Procedure: Operation Date: 01/12/22 08:20 Proposed Procedure Side Surgeon sree Sofia, DO Meds Allergies and Home Medications Allergies Allergy/AdvReac Type Severity Reaction Status Date / Time No Known Allergies Allergy Verified 01/12/22 07:14 Home Medication Medication Instructions Recorded albuterol sulfate 90 mcg/actuation 2 puff inhalation Q4H PRN ##1 10/17/19 aerosol inhaler (ProAir HFA) fluticasone 100 mcg-salmeterol 50 1 ea inhalation BID #60 ea 01/14/21 mcg/dose blistr powdr for inhalation (Advair Diskus) Combivent Respimat 20 mcg-100 1 puff inhalation QID #4 grams 04/24/21 mcg/actuation solution for inhalation (ipratropium-albuterol) Symbicort 160 mcg-4.5 2 puff inhalation BID #10.2 grams 04/24/21 mcg/actuation HFA aerosol inhaler (budesonide-formoterol) Current Visit Medications: Current Medications Generic Name Dose Route Start Last Admin Trade Name Freq PRN Reason Stop Dose Admin Ringer's Solution 1,000 mls @ 80 mls/hr 01/12/22 06:00 IV 02/07/22 23:59 INFUSION ALICIA IV Miscellaneous Supplies 1 each 01/12/22 06:00 Iv Access IV 02/07/22 23:59 DIRECTED ALICIA Sodium Chloride 0 ml 01/12/22 06:00 Normal Saline Flush 10 Ml Syr IV 02/07/22 23:59 PRN PRN Sodium Chloride 0 ml 01/12/22 06:00 Normal Saline 10 Ml Vial IJ 02/07/22 23:59 DIRECTED PRN Sterile Water 0 ml 01/12/22 06:00 Water,Injection,Sterile 10 Ml Vial IJ 02/07/22 23:59 DIRECTED PRN PFSH Active Problems Active Problems: Problem Status Onset Code Elevated PSA R97.20 Screening for colon cancer Z12.11 Tear of medial meniscus of right knee S83.241A Acute knee pain M25.569 Diarrhea R19.7 Full code status Z78.9 COVID-19 virus infection U07.1 Community acquired pneumonia J18.9 Chronic obstructive pulmonary disease 08/28/12 J44.9 Encounter for annual physical exam Z00.00 Medical History Medical History Amputation of right middle finger (03/11/17) Tobacco Smoking/Tobacco Use Status: Current every day Tobacco Type: smokeless tobacco Smokeless tobacco user: snuff Passive smoking exposure: Yes Second hand exposure: Yes Alcohol Alcohol Intake: current Alcohol intake frequency: holidays/special occasions only Alcohol type: beer Substance Use Substance use: Never Substance use type: does not use Vital Signs and Lab Results Vital Signs Most Recent Vital Signs in EMR: Temp Pulse Resp BP Pulse Ox 37 C 55 L 19 116/90 99 01/12/22 07:21 01/12/22 07:21 01/12/22 07:21 01/12/22 07:21 01/12/22 07:21 Lab Results Blood Type / Crossmatch: No Data to Display Complete Blood Count: No Data to Display Complete Metabolic Panel: No Data to Display Liver Function Panel: No Data to Display Coagulation Panel: No Data to Display Cardiac Panel: No Data to Display Arterial Blood Gas: No Data to Display Venous Blood Gas: No Data to Display Pancreas Panel: No Data to Display Thyroid Panel: No Data to Display Infectious Disease: No Data to Display Blood Cultures: No Data to Display Toxicology Panel: No Data to Display Imaging and Studies Imaging and Studies Study information below may be from another EMR and interpreted by another provider. Please see original notes in EMR for more complete details. EKG Summary: 2020: sinus rhythm. Anesthesia Assessment and Plan Anesthesia History Personal History: No History of Anesthesia Complications Family History: No Family History of Anesthesia Complications Exercise Tolerance Exercise Tolerance: Metabolic Equivalents>4 Cardiac & Pulmonary Exam Cardiac Exam: Normal S1/S2 Heart Sounds Pulmonary Exam: Clear Bilateral Breath Sounds Implantable Cardiac Device Does patient have a Pacemaker or an ICD?: No Airway Exam Known Difficult Airway: No Mallampati Class: 3 Mouth Opening: Normal (> 3cm) Thyromental Distance: Less than 3 cm Neck Range of Motion: Full ROM Neck Circumference: Normal Teeth Condition: Normal Dentition ASA Classification ASA Score: ASA 3 Emergency Case?: No NPO Status NPO Status: NPO Clears >2 hours, Solids >8 hours Anesthesia Plan Resuscitation Status: Full Code Anesthesia Technique: General Anesthesia Airway Planned: Natural Airway Monitors Used: Standard Monitors Preoperative Comments:: 66 yo male for colonoscopy Sig PMHx: tocacco use, off EtOH, copd (advair, symbicort, albuterol), denies other major.
--- NOTE | 2022-01-11 23:57 | PDOC.DSDIS_ITS ---
Discharge Plan Disposition Patient Disposition: HOME Condition: Good Discharge Details Reason For Visit: colon scope Attending Provider: Kat Sofia Primary Care Provider: Arnoldo Villa Home Meds and New Rx's Prescriptions: No Action albuterol sulfate [ProAir HFA] 90 mcg/actuation HFA aerosol inhaler 2 puff Inhalation Q4H PRN Qty: 1 6RF fluticasone propion-salmeterol [Advair Diskus] 100-50 mcg/dose blister with d evice 1 ea Inhalation BID Qty: 60 11RF budesonide-formoterol [Symbicort] 160-4.5 mcg/actuation HFA aerosol inhaler 2 puff inhalation BID Qty: 10.2 5RF Combivent Respimat 20-100 mcg/actuation mist 1 puff inhalation QID Qty: 4 3RF Discharge Instructions Additional Instructions: DSU Colonoscopy Post- Op Instructions Instructions for Everyone who is given Anest hesia: For your safety, please do the following for the next twenty-four (24) hours: *Do Not operate a motor vehicle (car, truck, motorcycle, etc.) *Do Not drink alcoholic beverages or use any recreational drugs for the first 24 hours or while taking pain medications. The medications in your body may have a reaction that can be dangerous. *Do Not make any important decisions or sign any important papers. Findings: Internal/External hemorrhoids start fiber supplement and avoid straining to move bowels Follow up: repeat in 10 yrs time 1. No lifting over 20 pounds or strenuous activity for the first 24 hours after your procedure. After 24 hours there are no restrictions on your activity but you may feel fatigued for a few days. 2. After you arrive home you may have a light meal and return to your normal diet as you can tolerate it without feeling sick to your stomach. 3. You may have a bloated, gaseous feeling in your belly (abdomen) after a colonoscopy. Passing gas and belching will help. Walking or lying down on your left side with your knees flexed may relieve the discomfort. Call the office at [phone] (Office) or [phone] (Hospital) right away if you notice any of the following: a.Vomiting of blood or ?coffee ground stools?. b.Rectal bleeding 1Tbsp, blood clots or continuous bleeding. c.Severe belly (abdominal) pain. d.A hard distended belly (abdomen) and an inability to pass gas. 4. Please don?t expect to have a normal BM (bowel movement) for 2-3 days after your procedure. 5. If there are questions regarding the findings of your procedure, please contact your doctor 6. If you are unable to contact your doctor with a problem, contact the hospital at [phone]. 7. Continue all your regular medications unless directed otherwise. I understand the above instructions and have no questions. Signature of Patient or Adult Escort Name of Responsible Adult Escort Signature of Nurse Date/Time Activity:: see above Diet:: see above Discharge Orders Discharge Orders: Discharge Order (Routine); Ordered 01/11/22 Ordered By: Kat Sofia
--- NOTE | 2022-01-11 23:57 | W.COLOREPORT ---
Colonoscopy Report Date of procedure: 01/12/22 Pre-op diagnosis general: screening/anemia Post-op diagnosis procedure note: other Surgeon: Kat Sofia Anesthesia Type: General:No Airway Estimated blood loss (mL): 0 Pathology: none sent Complications: None Disposition: same day Prep: Miralax/Dulcolax Retraction Time: 8 Procedure Description: After informed consent was obtained the patient was taken to the procedure room and placed in a left decubitous position. Monitors were applied and a time out was done. The patients name, date of , procedure, allergies to medications and metal in their body was reviewed. The patient was then sedated. Once sedated and comfortable a rectal exam was done. External exam: grade II hemorrhoids w/ out inflammation. Internal exam revealed a normal sphincter tone and no palpable masses. The scope was then introduced and retrofelexed. Grade II internal hemorrhoids & Ext hemorrhoids were identified. The scope was then advanced to the cecum w/ out difficulty. The TI and appendiceal orifice were identified. The prep was BBPS II in all segments for a total of 6. The scope was then slowly retracted over 8 minutes back into the rectum. There were no polyps, AVMs, or diverticula visualized today. The mucosa is pink and healthy with a normal vascular pattern. The scope was removed and the patient was woken up and taken back to Same day surgery in stable condition. The patient tolerated the procedure well and there were no immediate complications. Follow up: The patient should follow up in 10 years unless they develop changes in bowel habits or other new gastrointestinal complaints.
[2022-01-12 07:21] VITALS: BP 116/90; PULSE 55; RESP 19; TEMP 37; O2SAT 99
[2022-01-12 07:57] VITALS: BMI 29.7
[2022-01-12] MEDS: Lactated Ringers 1,000 ML 80 ML IV (08:53)
[2022-01-12 09:33] VITALS: BP 91/63; PULSE 60; RESP 18; TEMP 36.1; O2SAT 95
--- NOTE | 2022-01-12 09:45 | W.ANESPOSTOP ---
Postoperative Evaluation Date, Time and Location Date Performed: 01/12/22 Time Performed: 09:45 Patient Location: Day Surgery Unit Vital Signs Most Recent Imported Vital Signs: Most Recent Vital Signs Temp Pulse Resp BP Pulse Ox 36.1 C L 60 18 91/63 L 95 01/12/22 09:33 01/12/22 09:33 01/12/22 09:33 01/12/22 09:33 01/12/22 09:33 Pain Score Most Recent Pain Score: Most Recent Pain Score Pain Level 0 01/12/22 09:33 Assessment Mental Status: Awake (Alert & Oriented to Patient Baseline) Airway and Respiratory Function: Patent airway with normal (patient baseline) respiratory exam Cardiovascular Function: Hemodynamically Stable Hydration Status: Adequately Hydrated Nausea & Vomiting: No Nausea or Vomiting Pain: Pt. Denies Any Pain Peripheral Nerve Block: Patient did not receive a nerve block
[2022-01-12 10:11] VITALS: BP 115/78; PULSE 55; RESP 16; TEMP 36.2; O2SAT 97
--- NOTE | 2022-01-12 11:11 | W.PM.OP ---
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 It is 6 x 3 inches-
== END 2022-01-12 10:39 | disposition home or self-care (01) ==
PROVIDERS: PCP Family Medicine; Visit Provider Surgery
PROC: 0DJD8ZZ Inspection of Lower Intestinal Tract, Via Natural or Artificial Opening Endoscopic (ICD-10-PCS; CPT 45378; principal; 2022-01-12 08:15)
DX: Z12.11 Encounter for screening for malignant neoplasm of colon (principal); K64.1 Second degree hemorrhoids; K64.4 Residual hemorrhoidal skin tags; J44.9 Chronic obstructive pulmonary disease, unspecified; D64.9 Anemia, unspecified
CPT/HCPCS: 45378; 80053; 82728; 83036; 85025; 86140

== ENCOUNTER 2022-01-14 03:04 | Outpatient (CLI) | payer MEDICARE, MEDICAID, SELFPAY ==
[2022-01-14 20:09] LABS: PSA, Diagnostic 5.1 ng/mL (<=4.5)
== END 2022-01-14 03:05 | disposition home or self-care (01) ==
LOC: LBO 03:04
PROVIDERS: PCP Family Medicine; Visit Provider Nurse Practitioner Gerontology
DX: R68.89 Other general symptoms and signs (principal); R97.20 Elevated prostate specific antigen [PSA]
CPT/HCPCS: 36415; 84153

== ENCOUNTER 2022-04-12 12:06 | Emergency (ER) | payer MEDICARE, MEDICAID, SELFPAY ==
[2022-04-12 12:18] VITALS: BP 136/93; PULSE 64; RESP 18; TEMP 36.6; O2SAT 99
[2022-04-12 14:49] VITALS: BP 160/90; PULSE 62; RESP 18; TEMP 36.8; O2SAT 99
--- NOTE | 2022-04-12 15:30 | DI.RAD_ITS ---
Exam(s) XR KNEE LT 4V+ EXAM: XR KNEE LT 4V+ CLINICAL HISTORY: twist injury. TECHNIQUE: 2D digital imaging was performed. Four views. COMPARISON: CR XR KNEE RT 3V AP,LAT,MARGOT from 03/02/2021 FINDINGS: BONES: No acute fracture is present. No bony destructive lesion is seen. Small enthesophyte at juvenal driceps insertion. JOINTS: The knee is normally aligned. A small joint effusion is seen. Joint spaces are maintained. SOFT TISSUE: Normal. IMPRESSION: Joint effusion. No evidence of fracture. DATA REPOSITORY: RADIATION DOSE DELIVERED:
--- NOTE | 2022-04-12 15:42 | ED.GENADUL_ITS ---
Discharge Plan Disposition Patient Disposition: Home Condition: Stable Discharge Details Clinical Impression: Knee effusion, left Primary Care Provider: Arnoldo Villa ED Provider: Andrés Desai Home Meds and New Rx's Prescriptions: Continued fluticasone propion-salmeterol [Advair Diskus] 100-50 mcg/dose blister with device 1 ea Inhalation BID Qty: 60 11RF Combivent Respimat 20-100 mcg/actuation mist 1 puff inhalation QID Qty: 4 3RF albuterol sulfate [ProAir HFA] 90 mcg/actuation HFA aerosol inhaler 2 puff Inhalation Q4H PRN Qty: 1 6RF fluticasone propion-salmeterol [Advair Diskus] 100-50 mcg/dose blister with device 1 ea Inhalation BID Qty: 60 11RF Discharge Instructions Instructions: Knee Pain (ED) Additional Instructions: Rotan as directed, this medication may cause drowsiness and/or constipation, you may want to take an byou-lzh-lrwvltl stool softener while taking this medication. Rest, elevate, cool compresses every 2 hours for 20 minutes. Wear knee brace as needed, advance activity as tolerated. Please watch for new or worsening symptoms and return to the ER for any concerns. Lastly, please contact the orthopedic provider tomorrow to discuss your ER visit need for outpatient reevaluation. Referrals: Pa Small MD [ [facility] STAFF PHYSICIAN] - Medical Decision Making 67-year-old gentleman who reports chronic issues with his left knee, had an injection a month-2 ago which seemed to help but last week he turned quickly twisting his knee, feels as though he increased the pain and the pain is different than what it typically is. Low suspicion for acute bony abnormality but can offer an x-ray here. X-ray to be obtained. X-ray reveals joint effusion. Discussed findings with patient. He reports that a hinged brace helped him greatly in the past, he does not have 1, and would like 1. He declines crutches. Hinged knee brace applied. Taken pack of Rotan given for bedtime over the next few nights. We discussed the importance of outpatient follow-up through orthopedics, he may require outpatient imaging such as MRI for definitive care. Standard discharge and return precautions were provided. Patient understands, is agreeable to this plan, and has no additional questions or concerns upon discharge. This documentation was generated using Banno dictation system, please disregard any oddities of phrase or misspellings. Medical Records Medical records reviewed: Yes I reviewed the patient's medical records. Imaging Data Radiologic Study: Attestation: I personally reviewed and interpreted this imaging study as follows: Imaging: X-Ray Radiologist's impression: Exam(s) XR KNEE LT 4V+ EXAM: XR KNEE LT 4V+ CLINICAL HISTORY: twist injury. TECHNIQUE: 2D digital imaging was performed. Four views. COMPARISON: CR XR KNEE RT 3V AP,LAT,MARGOT from 03/02/2021 FINDINGS: BONES: No acute fracture is present. No bony destructive lesion is seen. Small enthesophyte at quadriceps insertion. JOINTS: The knee is normally aligned. A small joint effusion is seen. Joint spaces are maintained. SOFT TISSUE: Normal. IMPRESSION: Joint effusion. No evidence of fracture. Sign Out No HPI General Mode of arrival: ambulatory . Date/Time Provider Initiated Documentation: 04/12/22 14:37 . Limitations to Documentation: no limitations . Information obtained by: patient . History of Present Illness 67 year old M presents to the emergency department with the chief complaint of L knee pain, described as moderate, with intensity rated at 6. Quality is described as aching, and is localized to the left and lower extremity. Patient reports no radiation. Patient started experiencing this week(s) (1.5) and it has been constant. Immobilization improves symptom(s), Movement worsens symptoms . Patient notes no other symptoms.. Patient did receive the following treatments prior to arrival, none Related Data Home Medications Medication Instructions Recorded Confirmed fluticasone 100 mcg-salmeterol 50 1 ea inhalation BID #60 ea 01/14/21 04/12/22 mcg/dose blistr powdr for inhalation (Advair Diskus) Combivent Respimat 20 mcg-100 1 puff inhalation QID #4 grams 02/04/22 04/12/22 mcg/actuation solution for inhalation (ipratropium-albuterol) albuterol sulfate 90 mcg/actuation 2 puff inhalation Q4H PRN ##1 02/04/22 04/12/22 aerosol inhaler (ProAir HFA) fluticasone 100 mcg-salmeterol 50 1 ea inhalation BID #60 ea 04/02/22 04/12/22 mcg/dose blistr powdr for inhalation (Advair Diskus) Previous Rx's Medication Instructions Recorded fluticasone 100 mcg-salmeterol 50 1 ea inhalation BID #60 ea 01/14/21 mcg/dose blistr powdr for inhalation (Advair Diskus) Combivent Respimat 20 mcg-100 1 puff inhalation QID #4 grams 02/04/22 mcg/actuation solution for inhalation (ipratropium-albuterol) albuterol sulfate 90 mcg/actuation 2 puff inhalation Q4H PRN ##1 02/04/22 aerosol inhaler (ProAir HFA) fluticasone 100 mcg-salmeterol 50 1 ea inhalation BID #60 ea 04/02/22 mcg/dose blistr powdr for inhalation (Advair Diskus) Allergies Allergy/AdvReac Type Severity Reaction Status Date / Time No Known Allergies Allergy Verified 04/12/22 12:20 General Stated Complaint: Orthopedic DEBBY: 4 Review of Systems Constitutional Constitutional: Denies fever(s) and Denies weakness Musculoskeletal Musculoskeletal: Reports arthralgias, Reports joint swelling, Denies numbness, Reports stiffness and Denies tingling Integumentary/Breasts Skin/Breast: Denies rash Neurologic Neurologic: Denies numbness, Denies tingling and Denies weakness PFSH All Active Problems (Updated 04/12/22 @ 16:38 by HAKEEM Kidd) Knee effusion, left (Acute) Elevated LFTs (Acute) Elevated PSA (Acute) Screening for colon cancer (Acute) Tear of medial meniscus of right knee (Acute) Acute knee pain (Acute) Diarrhea (Acute) Full code status (Acute) COVID-19 virus infection (Acute) Community acquired pneumonia (Acute) Chronic obstructive pulmonary disease (Acute 08/28/12) stay on the inhaler Encounter for annual physical exam (Acute) Medical History Amputation of right middle finger (03/11/17) Family History Father , 88 Heart disease Hypertension Mother No problems noted. Brother No problems noted. Brother No problems noted. Brother No problems noted. Brother No problems noted. Son No problems noted. Daughter No problems noted. Daughter No problems noted. Social History Smoking/Tobacco Use Status: Former Tobacco Use Smokeless tobacco user: snuff Quit status: has quit before (chews off and on) Second Hand Exposure: Yes Smoking risk assessment performed?: Yes Alcohol Intake: current Alcohol Intake frequency: holidays/special occasions only Alcohol type: beer Drug use: Never Substance use type: does not use Caregiver/Support person: Yes Household members: none Housing: house Number of Children: 1 Do you need help understanding health information?: Rarely Pets and animals: Yes Pets and animals: dog(s), horse(s) and farm animals Sexually active: Yes Do you think of yourself as: straight/heterosexual Current gender identity: male What is your relationship status?: living with partner How often do you talk on the phone with friends or family?: decline to answer How often do you get together with friends or relatives?: decline to answer How often do you attend mandaen or orthodoxy services?: decline to answer Do you belong to any clubs or organized social groups?: decline to answer Panel score (0-1 are the most socially isolated patients): 1 What type of physical activity do you participate in: other Details: Working Duration: > 90 minutes/day Frequency: daily Apurva/Quaker: No preference Special apurva needs: No Seatbelt use: always Helmet use: No Drive intox or ride w/intox trencher driver: No Do you feel safe at home: Yes Do you feel safe in your relationship?: Yes Exam Const General: cooperative, healthy appearing, comfortable and no acute distress Orientation: alert and awake [facility] Head: normal to inspection, normocephalic and atraumatic Eyes Conjunctivae: conjunctivae normal Neck Neck: normal visual inspection, trachea midline and supple Resp Effort & Inspection: normal respiratory effort and able to speak in complete sentences Cardio Rate: regular rate Rhythm: regular rhythm Skin General skin exam: no rashes or lesions noted Neuro General: patient alert, patient awake, moves all extremities and no focal motor deficits Cognition: normal cognition Speech: speech normal Gait: antalgic Motor: muscle tone normal throughout Sensory Exam: no sensory deficits noted Extrem General: full ROM and capillary refill normal Other: Left knee stable. No laxity. Mild anterior and medial swelling without erythema, warmth, ecchymosis. Normal pedal pulse. No calf tenderness. Full range of motion. Neuro, vascular, tendon intact. Increased discomfort with varus and valgus stress, negative anterior draw sign. Psych Appearance: grossly normal Mental Status: mental status grossly normal Course Vital Signs Vital signs: Vital Signs Temperature 36.6 C 04/12/22 12:18 Pulse 64 04/12/22 12:18 Respiratory Rate 18 04/12/22 12:18 Blood Pressure 136/93 H 04/12/22 12:18 Pulse Oximetry 99 04/12/22 12:18 Temperature 36.8 C 04/12/22 14:49 Temperature Source Tympanic 04/12/22 14:49 Pulse 62 04/12/22 14:49 Respiratory Rate 18 04/12/22 14:49 Respiratory Effort Non-Labored 04/12/22 12:20 Blood Pressure 160/90 H 04/12/22 14:49 Blood Pressure Position Sitting 04/12/22 12:18 Pulse Oximetry 99 04/12/22 14:49 Oxygen Delivery Method Room Air 04/12/22 14:49 Oxygen Flow Rate 0 04/12/22 14:49
== END 2022-04-12 16:53 | disposition home or self-care (01) ==
PROVIDERS: Emergency Provider Physician Assistant; PCP Family Medicine
DX: M25.462 Effusion, left knee (principal); Z87.891 Personal history of nicotine dependence
CPT/HCPCS: 99283; 73564; 99284

== ENCOUNTER 2022-05-25 02:17 | Outpatient (CLI) | payer MEDICARE, MEDICAID, SELFPAY ==
--- NOTE | 2022-05-25 06:45 | DI.MRI_ITS ---
Exam(s) MR LOWER JOINT LT WO EXAM: MR LOWER JOINT LT WO CLINICAL HISTORY: lt knee pain,lt knee effusion,m25.462,m25.562 TECHNIQUE: Multiplanar multisequence MRI of the knee was performed. COMPARISON: CR XR KNEE LT 4V+ from 04/12/2022 FINDINGS: EFFUSION: There is a moderate-sized joint effusion. There is a small Joseph cyst in the popliteal fos sa which measures 2 cm length by 0.5 cm AP by 0.3 cm wide. Does not contain loose bodies. MARROW:There is no evidence of fracture, bone contusion, nor osteochondral defects.. There are no si gnificant osseous lesions. PATELLOFEMORAL COMPARTMENT: Mild increased signal seen in the distal quadriceps tendon. Patellar ten don is intact. No abnormal intraosseous signal in the patella. There is superficial sys fissuring of the retropatellar cartilage over the medial and mid facet level . This does not extend to the junction with the posterior patella. No abnormal intraosseous signal in the patella. No osteochondral defects.There is no intraosseous signal to suggest recent patellar dislocation. There are no patellar retinacular tears. CRUCIATE LIGAMENTS: The anterior cruciate ligament is intact.The posterior cruciate ligament is intac t. MEDIAL COMPARTMENT/MEDIAL MENISCUS: There is tear in the posterior horn of the medial meniscus. This is predominantly an inferior surface tear with an oblique component. No bucket-handle configuration . There is mild meniscocapsular separation. Meniscal root appears intact. Anterior horn of the med ial meniscus is intact.. There are no obvious chondral defects, osteochondral defects, subarticular marrow edema, nor osteophy shantell evident. MEDIAL COLLATERAL LIGAMENT: Mild sprain signal. No high-grade tear. LATERAL COMPARTMENT/LATERAL MENISCUS: There is no evidence of lateral meniscal tear.There are no armaan dral defects, osteochondral defects, subarticular marrow edema, nor osteophytes evident. ILIOTIBIAL BAND: Intact LATERAL COLLATERAL LIGAMENT COMPLEX: The fibular collateral ligament is intact. The biceps femoris t endon is intact.Popliteus muscle and tendon are intact. IMPRESSION: 1. There is an oblique undersurface tear of the posterior horn of the medial meniscus. No bucket-lopez dle configuration. Anterior horn appears intact. There are mild degenerative changes in the medial compartment. No large chondral defects nor osteochondral defects nor subarticular edema and there ar e no marginal osteophytes in the medial compartment. 2. No significant findings in the lateral compartment. 3. There is cyst fissuring of the retropatellar cartilage over the medial and mid facet level. Actua l cartilage thickness is within normal limits at this level. No abnormal intraosseous signal in the patella. 4. Cruciate ligaments are intact as is the lateral collateral ligament complex and iliotibial band. There is mild sprain signal in the MCL. 5. There is a small-moderate size joint effusion is small Joseph's cyst in the popliteal fossa. No o bvious loose intra-articular bodies evident. DATA REPOSITORY:
== END 2022-05-25 02:37 ==
PROVIDERS: PCP Family Medicine; Visit Provider Student in an Organized Health Care Education/Training Program
DX: M25.462 Effusion, left knee (principal); S83.242A Other tear of medial meniscus, current injury, left knee, initial encounter; M71.22 Synovial cyst of popliteal space [Baker], left knee
CPT/HCPCS: 73721

== ENCOUNTER → 2022-06-11 09:53 | Outpatient (BNVA) | payer MEDICARE, MEDICAID, SELFPAY | PROVIDERS: PCP Family Medicine; Referring Provider Family Medicine; Visit Provider Physician Assistant | DX: S83.412A Sprain of medial collateral ligament of left knee, initial encounter (principal); S83.242A Other tear of medial meniscus, current injury, left knee, initial encounter; X58.XXXA Exposure to other specified factors, initial encounter | CPT/HCPCS: 99213 ==

== ENCOUNTER 2022-06-29 10:51 | Day surgery (SDC) | payer MEDICARE, MEDICAID, SELFPAY ==
[2022-06-29] VITALS (12 sets, daily range): BP systolic 116–148; BP diastolic 75–99; PULSE 54–64; RESP 14–18; TEMP 36.3–36.5; O2SAT 95–99; BMI 28.1
--- NOTE | 2022-06-29 08:54 | W.ANESPRE ---
General Info Date of Service Date Performed: 06/29/22 Height: 5 ft 7 in Weight: 81.647 kg Body Mass Index (BMI): 28.1 Surgical Procedure: Operation Date: 06/29/22 14:40 Proposed Procedure Side Surgeon p Knee Arthroscopy w/Partial Medial Menisectomy Left Pa Small MD Meds Allergies and Home Medications Allergies Allergy/AdvReac Type Severity Reaction Status Date / Time No Known Allergies Allergy Verified 06/29/22 11:11 Home Medication Medication Instructions Recorded Combivent Respimat 20 mcg-100 1 puff inhalation QID #4 grams 02/04/22 mcg/actuation solution for inhalation (ipratropium-albuterol) albuterol sulfate 90 mcg/actuation 2 puff inhalation Q4H PRN ##1 02/04/22 aerosol inhaler (ProAir HFA) fluticasone 100 mcg-salmeterol 50 1 ea inhalation BID #60 ea 04/02/22 mcg/dose blistr powdr for inhalation (Advair Diskus) Current Visit Medications: Current Medications Generic Name Dose Route Start Last Admin Trade Name Freq PRN Reason Stop Dose Admin Ringer's Solution 1,000 mls @ 80 mls/hr 06/29/22 06:00 IV 06/29/22 23:59 INFUSION ALICIA Cefazolin Sodium/Dextrose 2 gm in 50 mls @ 100 mls/hr 06/29/22 06:00 Ancef Duplex IVPB 06/29/22 23:59 PREOP ALICIA IV Miscellaneous Supplies 1 each 06/29/22 06:00 Iv Access IV 06/29/22 23:59 DIRECTED ALICIA Sodium Chloride 0 ml 06/29/22 06:00 Normal Saline Flush 10 Ml Syr IV 06/29/22 23:59 PRN PRN Sodium Chloride 0 ml 06/29/22 06:00 Normal Saline 10 Ml Vial IJ 06/29/22 23:59 DIRECTED PRN Sterile Water 0 ml 06/29/22 06:00 Water,Injection,Sterile 10 Ml Vial IJ 06/29/22 23:59 DIRECTED PRN PFSH Active Problems Active Problems: Problem Status Onset Code Tear of medial meniscus of left knee S83.242A MCL sprain of left knee S83.412A Internal derangement of left knee M23.92 Elevated LFTs R79.89 Elevated PSA R97.20 Screening for colon cancer Z12.11 Tear of medial meniscus of right knee S83.241A Acute knee pain M25.569 Diarrhea R19.7 Full code status Z78.9 COVID-19 virus infection U07.1 Community acquired pneumonia J18.9 Chronic obstructive pulmonary disease 08/28/12 J44.9 Encounter for annual physical exam Z00.00 Medical History Medical History Amputation of right middle finger (03/11/17) Tobacco Smoking/Tobacco Use Status: Current every day Tobacco Type: smokeless tobacco Smokeless tobacco user: snuff Passive smoking exposure: Yes Second hand exposure: Yes Alcohol Alcohol Intake: current Alcohol intake frequency: holidays/special occasions only Alcohol type: beer Substance Use Substance use: Never Substance use type: does not use Vital Signs and Lab Results Vital Signs Most Recent Vital Signs in EMR: Temp Pulse Resp BP Pulse Ox 36.4 C L 64 18 132/90 95 06/29/22 10:55 06/29/22 10:55 06/29/22 10:55 06/29/22 10:55 06/29/22 10:55 Lab Results Blood Type / Crossmatch: No Data to Display Complete Blood Count: No Data to Display Complete Metabolic Panel: No Data to Display Liver Function Panel: No Data to Display Coagulation Panel: No Data to Display Cardiac Panel: No Data to Display Arterial Blood Gas: No Data to Display Venous Blood Gas: No Data to Display Pancreas Panel: No Data to Display Thyroid Panel: No Data to Display Infectious Disease: No Data to Display Blood Cultures: No Data to Display Toxicology Panel: No Data to Display Imaging and Studies Imaging and Studies Study information below may be from another EMR and interpreted by another provider. Please see original notes in EMR for more complete details. EKG Summary: 2020: sinus rhythm. Anesthesia Assessment and Plan Anesthesia History Personal History: No History of Anesthesia Complications Family History: No Family History of Anesthesia Complications Exercise Tolerance Exercise Tolerance: Metabolic Equivalents>4 Cardiac & Pulmonary Exam Cardiac Exam: Normal S1/S2 Heart Sounds Pulmonary Exam: Clear Bilateral Breath Sounds Implantable Cardiac Device Does patient have a Pacemaker or an ICD?: No Airway Exam Known Difficult Airway: No Mallampati Class: 3 Mouth Opening: Normal (> 3cm) Thyromental Distance: Less than 3 cm Neck Range of Motion: Full ROM Neck Circumference: Normal Teeth Condition: Normal Dentition ASA Classification ASA Score: ASA 2 Emergency Case?: No NPO Status NPO Status: NPO Clears >2 hours, Solids >8 hours (coffee with cream at 0500) Anesthesia Plan Resuscitation Status: Full Code Anesthesia Technique: General Anesthesia Airway Planned: LMA Monitors Used: Standard Monitors Preoperative Comments:: 66 yo male for knee scope. Sig PMHx: former tobacco use, off EtOH, copd (advair, symbicort, albuterol) - breathing feels good today, denies other major. Previous Anes: - colo with prop, no issues.
[2022-06-29] MEDS: Lactated Ringers 1,000 ML 80 ML IV (11:32)
[2022-06-29] MEDS: ceFAZolin 2 GM/50 ML BAG IVPB (13:18)
[2022-06-29] MEDS: Bupivacaine 0.5% Pres-Free 30 ML VIAL (13:42)
--- NOTE | 2022-06-29 13:47 | W.PM.DSUDISC ---
Date of service: 06/29/22 Time of Service: 13:50 Discharge Plan Disposition Patient Disposition: Home Condition: Good Discharge Details Reason For Visit: left knee medial meniscus tear Attending Provider: Pa Small Primary Care Provider: Arnoldo Villa Home Meds and New Rx's Prescriptions: New acetaminophen 500 mg tablet 500 mg PO Q6H PRN (Reason: pain) Qty: 60 2RF ibuprofen 600 mg tablet 600 mg PO TID PRN (Reason: pain) Qty: 60 0RF hydrocodone-acetaminophen 5-325 mg tablet 1 tab PO Q6H PRN (Reason: severe pain) Qty: 4 0RF Rx Instructions: Take one tablet up to every 6 hours as needed for severe postoperative pain Continued Combivent Respimat 20-100 mcg/actuation mist 1 puff inhalation QID Qty: 4 3RF albuterol sulfate [ProAir HFA] 90 mcg/actuation HFA aerosol inhaler 2 puff Inhalation Q4H PRN Qty: 1 6RF fluticasone propion-salmeterol [Advair Diskus] 100-50 mcg/dose blister with device 1 ea Inhalation BID Qty: 60 11RF Discharge Instructions Stand Alone Forms: Staci Knee Arthroscopy Equipment/Supplies: Partial Weight Bearing Crutches Activity:: Elevate Remove Dressings/Wound Care:: 72 hours Shower/Bathe:: 72 hours Diet:: As Tolerated Discharge Orders Discharge Orders: Discharge Order (Routine); Ordered 06/29/22 Ordered By: Kat Dorsey
--- NOTE | 2022-06-29 14:17 | W.PM.OP ---
Date of service: 06/29/22 Time of Service: 14:05 Operative Note Operative Note DATE OF PROCEDURE: 06/29/22 PRE-OP DIAGNOSIS: Left Medial Meniscus Tear POST-OP DIAGNOSIS: same PROCEDURE: Arthroscopic Partial Medial Menisectomy - Left Knee SURGEON: Pa Small ANESTHESIA TYPE: General LMA/ETT Refer to Anesthesia Record ESTIMATED BLOOD LOSS: 0 PATHOLOGY: none sent TOURNIQUET TIME: 0 COMPLICATIONS: None Patient was transported to: PACU Patient's condition: stable Indications: I have seen Filipe in clinic for symptoms of a meniscus tear. This was confirmed based on MRI and exam findings. Nonoperative measures were exhausted but disability and pain persisted. I discussed knee arthroscopy with meniscal intervention with the patient. I reviewed the risks of the procedure to include, but not limited to, bleeding, infection, pain, stiffness, damage to nerves or vessels, recurrence, blood clot. Despite these risks, the patient elected to proceed. Findings: A diagnostic arthroscopy was performed with the following findings: Suprapatellar Pouch: No significant inflammation, No loose bodies Medial Compartment: Complex medial meniscal tear, Intact meniscal root although some partial tear into the root, SOme mild Grade I chondromalacia, No loose bodies Notch: ACL and PCL were intact Lateral Compartment: Minor fraying at the root, Intact meniscal root, No significant chondromalacia or signs of arthritis, No loose bodies Patellofemoral Compartment: Grade II chondromalacia of the patella, No apparent patellar maltracking Procedure Description: Filipe was greeted in the preoperative holding area where the correct side was identified and marked. The consent was reviewed with the patient and signed. The history and physical was updated. All questions were answered. Filipe was taken back to the operating room. The patient was placed into the supine position on the operating room table. A nonsterile tourniquet was placed high onto the leg but not used. All bony prominences were well padded. Prophylactic antibiotics in the form of Cefazolin were administered. The left leg was then prepped with Chloraprep and draped in a standard fashion with stockinette and extremity drape. A timeout to confirm correct identity, side and site, procedure, allergies, anesthesia, and medical concerns was performed. The leg was placed into a pneumatic leg laughlin, [id number]. A standard lateral portal was made at the lateral border of the patella tendon in line with the inferior pole of the patella, soft spot. The skin and deep tissue was incised sharply and the blunt trochar was inserted atraumatically. A diagnostic arthroscopy was performed and the findings are listed above. The suprapatellar pouch had no significant inflammatory change. The patellofemoral articulation showed Grade II chondromalacia as well as good tracking. The lateral gutter had no loose bodies and the medial gutter had no loose bodies. The knee was brought into some valgus stress in extension to open the medial compartment. A medial portal was made, localized by a spinal needle. The portal was created with an #11 blade through skin and capsule under direct visualization avoiding any meniscal injury. A probe was then inserted into the medial compartment. The medial compartment was fully inspected. The chondral surface of the tibia showed no significant chondromalacia and the surface of the femur showed no significant chondromalacia. The medial meniscus had a complex meniscal tear from the root to the posterior horn with a large, loose flap and a large horirzontal cleavage tear. After evaluation, the meniscus was debrided down to a stable base using a series of biters and arthroscopic dario. It was probed afterwards to confirm that the tear had been removed and the meniscus was stable. The notch was then inspected which showed an intact ACL and an intact PCL. The leg was then brought into a figure of 4 position. The lateral compartment was fully inspected with the arthroscope and a probe. The chondral surface of the lateral femur showed no significant chondromalacia. The chondral surface of the lateral tibia showed no significant chondromalacia. The lateral meniscus had no meniscal tear but only some fraying at the posterior root. The arthroscope was brought back into the suprapatellar pouch and the leg was in full extension. The knee was thoroughly irrigated with the arthroscopic fluid on high flow and pressure. Inflow was stopped and excess fluid was removed. The wounds were closed with 4-0 Nylon. They were dressed with Xeroform, 4x4 gauze, ABD pad, Kerlix and an ALVIN wrap. A cryo-cuff was applied. The patient tolerated the procedure well and was returned to the Same Day Surgery area in a stable condition suffering no known complication.
--- NOTE | 2022-06-29 14:38 | W.ANESPOSTOP ---
Postoperative Evaluation Date, Time and Location Date Performed: 06/29/22 Time Performed: 14:38 Patient Location: PACU Vital Signs Most Recent Imported Vital Signs: Most Recent Vital Signs Temp Pulse Resp BP Pulse Ox 36.4 C L 58 L 15 144/95 H 97 06/29/22 14:20 06/29/22 14:25 06/29/22 14:25 06/29/22 14:25 06/29/22 14:25 Assessment Mental Status: Awake (Alert & Oriented to Patient Baseline) Airway and Respiratory Function: Patent airway with normal (patient baseline) respiratory exam Cardiovascular Function: Hemodynamically Stable Hydration Status: Adequately Hydrated Nausea & Vomiting: No Nausea or Vomiting Pain: Pain is tolerable per patient Peripheral Nerve Block: Patient did not receive a nerve block
[2022-06-29] MEDS: Normal Saline 10 ML VIAL IJ (14:41)
[2022-06-29] MEDS: HYDROmorphone 2 MG/ML SYR IVP ×3 (14:41→15:02)
[2022-06-29] MEDS: HYDROcodone 5/Acetaminophen 325 TAB PO (16:02)
== END 2022-06-29 16:32 | disposition home or self-care (01) ==
PROVIDERS: PCP Family Medicine; Visit Provider Student in an Organized Health Care Education/Training Program
PROC: (CPT 29870; principal; 2022-06-29 14:30)
DX: M23.232 Derangement of other medial meniscus due to old tear or injury, left knee (principal)
CPT/HCPCS: 29881; J0690; J1100; J1170; J1885; J2250; J2405; J2704

== ENCOUNTER 2022-07-12 02:56 | Outpatient (CLI) | payer MEDICARE, MEDICAID, SELFPAY ==
[2022-07-12 18:41] LABS: PSA, Screening 5.4 ng/mL (<=4.5)
== END 2022-07-12 02:57 | disposition home or self-care (01) ==
LOC: LBO 02:56
PROVIDERS: PCP Family Medicine; Visit Provider Nurse Practitioner Gerontology
DX: R97.20 Elevated prostate specific antigen [PSA] (principal); Z12.5 Encounter for screening for malignant neoplasm of prostate; Z47.89 Encounter for other orthopedic aftercare; R60.0 Localized edema
CPT/HCPCS: 36415; 84153

== ENCOUNTER → 2022-07-19 08:28 | Outpatient (BNVA) | payer MEDICARE, MEDICAID, SELFPAY | PROVIDERS: PCP Family Medicine; Visit Provider Nurse Practitioner Gerontology | DX: R97.20 Elevated prostate specific antigen [PSA] (principal); N40.1 Benign prostatic hyperplasia with lower urinary tract symptoms; N13.8 Other obstructive and reflux uropathy; R39.89 Other symptoms and signs involving the genitourinary system | CPT/HCPCS: 51798; 99213 ==

== ENCOUNTER → 2022-08-09 07:56 | Outpatient (BNVA) | payer MEDICARE, MEDICAID, SELFPAY | PROVIDERS: PCP Family Medicine; Referring Provider Family Medicine; Visit Provider Student in an Organized Health Care Education/Training Program | DX: Z47.89 Encounter for other orthopedic aftercare (principal) ==

== ENCOUNTER 2022-10-21 08:43 | Outpatient (CLI) | payer MEDICARE, MEDICAID, SELFPAY ==
[2022-10-21 13:08] LABS: Calculated LDL 144 mg/dL (<100); Cholesterol 204 mg/dL (<200); HDL Cholesterol 45 mg/dL (40-60); Triglyceride 75 mg/dL (<150)
[2022-10-21 13:37] LABS: Hemoglobin A1C 5.1 % (<5.7)
== END 2022-10-21 08:44 | disposition home or self-care (01) ==
LOC: LOS 08:43
PROVIDERS: PCP Family Medicine; Visit Provider Family Medicine
DX: E11.51 Type 2 diabetes mellitus with diabetic peripheral angiopathy without gangrene (principal); I70.209 Unspecified atherosclerosis of native arteries of extremities, unspecified extremity; E78.5 Hyperlipidemia, unspecified
CPT/HCPCS: 36415; 80061; 83036

== ENCOUNTER 2023-01-17 01:48 | Outpatient (CLI) | payer MEDICARE, MEDICAID, SELFPAY ==
[2023-01-17 18:12] LABS: PSA, Diagnostic 5.1 ng/mL (<=4.5)
== END 2023-01-17 01:49 | disposition home or self-care (01) ==
LOC: LBO 01:48
PROVIDERS: PCP Family Medicine; Visit Provider Nurse Practitioner Gerontology
DX: R97.20 Elevated prostate specific antigen [PSA] (principal); N40.1 Benign prostatic hyperplasia with lower urinary tract symptoms; N13.8 Other obstructive and reflux uropathy
CPT/HCPCS: 36415; 84153

== ENCOUNTER → 2023-01-24 10:01 | Outpatient (BNVA) | payer MEDICARE, MEDICAID, SELFPAY | PROVIDERS: PCP Family Medicine; Visit Provider Nurse Practitioner Gerontology | DX: N40.1 Benign prostatic hyperplasia with lower urinary tract symptoms (principal); R39.89 Other symptoms and signs involving the genitourinary system; R97.20 Elevated prostate specific antigen [PSA] | CPT/HCPCS: 99213 ==

== ENCOUNTER 2023-07-18 03:15 | Outpatient (CLI) | payer MEDICARE, SELFPAY ==
[2023-07-18 19:50] LABS: PSA, Diagnostic 5.8 ng/mL (<=4.5)
== END 2023-07-18 03:16 | disposition home or self-care (01) ==
LOC: LBO 03:15
PROVIDERS: PCP Family Medicine; Visit Provider Nurse Practitioner Gerontology
DX: N40.1 Benign prostatic hyperplasia with lower urinary tract symptoms (principal); N13.8 Other obstructive and reflux uropathy; R97.20 Elevated prostate specific antigen [PSA]
CPT/HCPCS: 36415; 84153

== ENCOUNTER → 2023-07-25 09:53 | Outpatient (BNVA) | payer MEDICARE, SELFPAY | PROVIDERS: PCP Family Medicine; Visit Provider Nurse Practitioner Gerontology | DX: N40.1 Benign prostatic hyperplasia with lower urinary tract symptoms (principal); N13.8 Other obstructive and reflux uropathy; R97.20 Elevated prostate specific antigen [PSA] | CPT/HCPCS: 51798; 99213 ==

== ENCOUNTER 2023-12-21 01:41 | Outpatient (CLI) | payer MEDICARE, SELFPAY ==
--- NOTE | 2023-12-21 06:30 | DI.US_ITS ---
Exam(s) US AAA SCREENING EXAM: US AAA SCREENING CLINICAL HISTORY: former smoker,screening for aaa, [id number] COMPARISON: CT CT CHEST PE CTA from 03/17/2020 FINDINGS: Abdominal Aorta: Proximal: 2.1 x 2.3 cm Mid: 2.2 x 1.9 cm Distal: 2.1 x 1.6 cm Iliac's: Right: 1.5 x 1.3 cm Left: 0.8 x 1.4 cm No significant atherosclerotic disease is seen. IMPRESSION: No evidence of abdominal aortic aneurysm. DATA REPOSITORY:
== END 2023-12-21 02:01 ==
PROVIDERS: PCP Family Medicine; Visit Provider Family Medicine
DX: Z87.891 Personal history of nicotine dependence (principal); Z13.6 Encounter for screening for cardiovascular disorders
CPT/HCPCS: 76706

== ENCOUNTER 2024-01-19 03:38 | Outpatient (CLI) | payer MEDICARE, SELFPAY ==
[2024-01-19 18:40] LABS: PSA, Diagnostic 5.7 ng/mL (<=4.5)
[2024-01-19 19:20] LABS: Hepatitis C Ab w Rflx HCV PCR Negative (Negative)
== END 2024-01-19 03:39 | disposition home or self-care (01) ==
LOC: LBO 03:38
PROVIDERS: PCP Family Medicine; Visit Provider Nurse Practitioner Gerontology
DX: N40.1 Benign prostatic hyperplasia with lower urinary tract symptoms (principal); N13.8 Other obstructive and reflux uropathy; R97.20 Elevated prostate specific antigen [PSA]; Z00.00 Encounter for general adult medical examination without abnormal findings
CPT/HCPCS: 86803; 84153

== ENCOUNTER → 2024-02-15 10:22 | Outpatient (BNVA) | payer MEDICARE, SELFPAY | PROVIDERS: PCP Family Medicine; Visit Provider Nurse Practitioner Gerontology | DX: N40.1 Benign prostatic hyperplasia with lower urinary tract symptoms (principal); N13.8 Other obstructive and reflux uropathy; R97.20 Elevated prostate specific antigen [PSA] | CPT/HCPCS: 99213 ==

== ENCOUNTER 2024-08-14 02:19 | Outpatient (CLI) | payer MEDICARE, SELFPAY ==
[2024-08-14 18:29] LABS: PSA, Diagnostic 5.9 ng/mL (<=4.5)
== END 2024-08-14 02:20 | disposition home or self-care (01) ==
LOC: LBO 02:19
PROVIDERS: PCP Family Medicine; Visit Provider Nurse Practitioner Gerontology
DX: N40.1 Benign prostatic hyperplasia with lower urinary tract symptoms (principal); N13.8 Other obstructive and reflux uropathy; R97.20 Elevated prostate specific antigen [PSA]; R39.9 Unspecified symptoms and signs involving the genitourinary system
CPT/HCPCS: 36415; 51798; 99213; 84153

== ENCOUNTER → 2024-10-09 08:41 | Outpatient (BNVA) | payer MEDICARE, SELFPAY | PROVIDERS: PCP Family Medicine; Referring Provider Family Medicine; Visit Provider Nurse Practitioner Gerontology | DX: N40.1 Benign prostatic hyperplasia with lower urinary tract symptoms (principal); N13.8 Other obstructive and reflux uropathy; R97.20 Elevated prostate specific antigen [PSA] | CPT/HCPCS: 99213 ==